=== PATIENT | female | born 1930 | race Two or more races ===

== ENCOUNTER 2018-01-18 13:20 | Inpatient (IN) | payer MEDICARE, OTHER ==
[~2018-01-18] VITALS: Ht 157.5 cm; Wt 64.9 kg
--- NOTE | 2018-01-18 13:32 | Emergency Room Report ---
History of Present Illness General Chief Complaint: Diarrhea Source: Patient (GABRIELADiandraLEIGHANN D.O.) Present Illness HPI Patient presents for 2 days of diarrhea. She denies abdominal pain. She denies nausea or vomiting. She denies fever or chills. She denies chest pain or shortness of breath. She denies fall or trauma. She denies dysuria or hematuria. She has no other complaints. (LEIGHANN YANES D.O.) Allergies: Coded Allergies: No Known Allergies (Unverified , 01/18/18) Patient History Past Medical History: see triage record, dementia Social History: Denies: smoking, alcohol use, drug use Reviewed Nursing Documentation: PMH: Agreed; PSxH: Agreed (LEIGHANN YANES D.O. ) Review of Systems All Other Systems: negative except mentioned in HPI (LEIGHANN YANES D.O.) Physical Exam Vital Signs Date Time Temp Pulse Resp B/P (MAP) Pulse Ox O2 Delivery O2 Flow Rate FiO2 01/18/18 13:14 98.2 80 18 100/60 98 Room Air 98.2 Sp02 EP Interpretation: reviewed, normal General Appearance: no apparent distress, alert, GCS 15, non-toxic Head: normocephalic, atraumatic Eyes: bilateral eye normal inspection, bilateral eye PERRL ENT: hearing grossly normal, normal pharynx, no angioedema, normal voice Neck: full range of motion, supple/symm/no masses Respiratory: chest non-tender, lungs clear, normal breath sounds, no respiratory distress, no retraction, no accessory muscle use, speaking full sentences Cardiovascular #1: regular rate, rhythm, no edema Gastrointestinal: normal bowel sounds, non tender, soft, non-distended, no guarding, no rebound Rectal: deferred Musculoskeletal: other - Unable to ROM L. hip. L. lower leg and L. foot cold with dark discoloration. unable to palpate DP pulse. Neurologic: alert, oriented x3, responsive, motor strength/tone normal, sensory intact, speech normal Psychiatric: judgement/insight normal, mood/affect normal, no suicidal/ homicidal ideation Skin: warm/dry, well hydrated, other - vaginal and perianal skin erythema/ irritation. (LEIGHANN YANES D.O.) Medical Decision Making Diagnostic Impression: Primary Impression: Colitis Additional Impression: PAD (peripheral artery disease) ER Course This patient presents with recurrent diarrhea. It is very watery and has a foul odor. I suspect she could have a C. difficile colitis. Most likely this patient also has a urinary tract infection. She is given antibiotics to treat both of these conditions. Given how frail and elderly this patient is, I feel she should be admitted for further treatment and monitoring as she could deteriorate rapidly. The patient's pelvis x-ray has a comminuted left hip fracture of uncertain acuity. Therefore, I obtained a CT of the left hip which is pending at the time of this dictation. This will be followed up by Dr. Flowers. She is also pending basic labs. See Dr. Flowers's addendum. She is admitted for further evaluation and treatment. (LEIGHANN YANES D.O.) ER Course Hospital Course 87-year-old female presents ED with several day history of diarrhea and weakness Clinical course Patient initially seen by Dr. Moses; please see her note for full history and physical Labs - marked leukocytosis noted, Hb/Hct stable. Na 126 Patient noted have limited range of motion of the left hip. No history of fall or trauma Xray L hip show severe shortening of the left femoral neck, acuity of fracture indeterminate CT A/P - severe pancolitis, also severe degenerative changes of bilateral hips but left worse than right Patient given IV hydration, given antibiotics Case discussed with Dr. Butler and he agreed to accept the patient to his service for further care and support I feel this is a highly complex case requiring extensive working including EKG/ Rhythm strip, Xray/CT/US, Blood/urine lab work, repeat exams while in ED, and administration of strong opiates/narcotics for pain control, admission to hospital or close patient follow up. Diagnosis - colitis, PAD Patient admitted to hospital in serious condition Labs Test 01/18/18 13:00 01/18/18 13:33 01/18/18 14:56 Sodium Level 126 MMOL/L (136-145) Potassium Level 4.2 MMOL/L (3.5-5.1) Chloride Level 94 MMOL/L (98-107) Carbon Dioxide Level 22 MMOL/L (21-32) Anion Gap 10 mmol/L (5-15) Blood Urea Nitrogen 21 mg/dL (7-18) Creatinine 1.0 MG/DL (0.55-1.30) Estimat Glomerular Filtration Rate mL/min (>60) Glucose Level 119 MG/DL (74-106) Calcium Level 8.5 MG/DL (8.5-10.1) Total Bilirubin 0.5 MG/DL (0.2-1.0) Aspartate Amino Transf (AST/SGOT) 14 U/L (15-37) Alanine Aminotransferase (ALT/SGPT) 17 U/L (12-78) Alkaline Phosphatase 128 U/L (46-116) Total Protein 6.6 G/DL (6.4-8.2) Albumin 2.0 G/DL (3.4-5.0) Globulin 4.6 g/dL Albumin/Globulin Ratio 0.4 (1.0-2.7) White Blood Count 26.8 K/UL (4.8-10.8) Red Blood Count 4.25 M/UL (4.20-5.40) Hemoglobin 13.3 G/DL (12.0-16.0) Hematocrit 39.4 % (37.0-47.0) Mean Corpuscular Volume 93 FL (80-99) Mean Corpuscular Hemoglobin 31.3 PG (27.0-31.0) Mean Corpuscular Hemoglobin Concent 33.7 G/DL (32.0-36.0) Red Cell Distribution Width 11.5 % (11.6-14.8) Platelet Count 336 K/UL (150-450) Mean Platelet Volume 7.4 FL (6.5-10.1) Neutrophils (%) (Auto) % (45.0-75.0) Lymphocytes (%) (Auto) % (20.0-45.0) Monocytes (%) (Auto) % (1.0-10.0) Eosinophils (%) (Auto) % (0.0-3.0) Basophils (%) (Auto) % (0.0-2.0) Urine Color Yellow Urine Appearance Cloudy Urine pH 5 (4.5-8.0) Urine Specific [place] 1.015 (1.005-1.035) Urine Protein 2+ (NEGATIVE) Urine Glucose (UA) Negative (NEGATIVE) Urine Ketones Negative (NEGATIVE) Urine Occult Blood 3+ (NEGATIVE) Urine Nitrite Negative (NEGATIVE) Urine Bilirubin 2+ (NEGATIVE) Urine Ictotest Negative Urine Urobilinogen 4 MG/DL (0.0-1.0) Urine Leukocyte Esterase 1+ (NEGATIVE) Urine RBC 5-10 /HPF (0 - 2) Urine WBC 5-10 /HPF (0 - 2) Urine Squamous Epithelial Cells Moderate /LPF (NONE/OCC) Urine Amorphous Sediment Many /LPF (NONE) Urine Bacteria Moderate /HPF (NONE) (German Flowers MD) EKG Diagnostic Results Rate: normal Rhythm: NSR ST Segments: no acute changes (LEIGHANN YANES D.O.) Rhythm Strip Diag. Results EP Interpretation: yes Rate: 80's Rhythm: NSR, no PVC's, no ectopy (LEIGHANN YANES D.O.) Other X-Ray Diagnostic Results Other X-Ray Diagnostic Results : X-Ray ordered: L hip # of Views/Limited Vs Complete: 3 View Indication: Pain EP Interpretation: Yes Interpretation: no dislocation, no soft tissue swelling, no fractures, other - Bones/joints: No acute fracture. No dislocation. Severe degeneration of the left hip with complete obliteration of the superior joint space and remodeling of the femoral head and acetabulum. Impression: Other - severe degeneration of L hip Electronically Signed by: Electronically signed by German Flowers MD (German Flowers MD) CT/MRI/US Diagnostic Results CT/MRI/US Diagnostic Results : Imaging Test Ordered: CT A/P Impression There is pancolitis as signified by extensive colonic wall thickening Severe degeneration of the hips, left more pronounced than right. No acute fracture. (German Flowers MD) Last Vital Signs Date Time Temp Pulse Resp B/P (MAP) Pulse Ox O2 Delivery O2 Flow Rate FiO2 01/18/18 13:14 98.2 80 18 100/60 98 Room Air 98.2 (LEIGHANN YANES D.O.) Status: improved (German Flowers MD) Disposition: ADMITTED INPATIENT Condition: Serious Scripts Unable to Obtain Active Prescriptions or Reported Meds LEIGHANN YANES D.O. January 18, 2018 13:32 German Flowers MD January 18, 2018 16:48
[2018-01-18 14:00] VITALS: BP 122/83
[2018-01-18 14:41] LABS: HEMATOCRIT 39.4 % (37.0-47.0); HEMOGLOBIN 13.3 G/DL (12.0-16.0); MEAN CORPUSCULAR VOLUME 93 FL (80-99); PLATELET COUNT 336 K/UL (150-450); RED BLOOD COUNT 4.25 M/UL (4.20-5.40); RED CELL DISTRIBUTION WIDTH 11.5 % (11.6-14.8)
[2018-01-18 14:48] LABS: ANION GAP 10 mmol/L (5-15); BLOOD UREA NITROGEN 21 mg/dL (7-18); CALCIUM 8.5 MG/DL (8.5-10.1); CARBON DIOXIDE 22 MMOL/L (21-32); CHLORIDE 94 MMOL/L (98-107); POTASSIUM 4.2 MMOL/L (3.5-5.1); SODIUM 126 MMOL/L (136-145)
[2018-01-18 14:49] LABS: WHITE BLOOD COUNT 26.8 K/UL (4.8-10.8)
[2018-01-18 14:53] LABS: ALANINE AMINOTRANSFERASE 17 U/L (12-78); ALBUMIN/GLOBULIN RATIO 0.4 (1.0-2.7); ALKALINE PHOSPHATASE 128 U/L (46-116); ASPARTATE AMINO TRANSFERASE 14 U/L (15-37); BILIRUBIN,TOTAL 0.5 MG/DL (0.2-1.0)
[2018-01-18 15:00] VITALS: BP 100/82
[2018-01-18] MEDS ORDERED: Vancomycin oral 125mg/2.5ml ORAL ONE (15:00)
[2018-01-18] MEDS ORDERED: cefTRIAXone 1 GM in NS 55 ML IVPB ONE (15:00)
--- NOTE | 2018-01-18 15:00 | Diagnostic Imaging Report ---
EXAM: XR Left Hip With Pelvis When Performed, 2 or 3 Views CLINICAL HISTORY: TRAUMA TECHNIQUE: Two or three views of the left hip, with pelvis when performed. COMPARISON: No relevant prior studies available. FINDINGS: Bones/joints: No acute fracture. No dislocation. Severe degeneration of the left hip with complete obliteration of the superior joint space and remodeling of the femoral head and acetabulum. Osteopenia. Soft tissues: Small soft tissue calcifications to the lateral upper thigh. IMPRESSION: No fracture or dislocation. Severe left hip degeneration..
[2018-01-18] MEDS ORDERED: Isovue-300 100ml vial INJ PRN (15:15)
[2018-01-18 15:45] LABS: APPEARANCE,URINE CLOUDY; BILIRUBIN, URINE 2+ (NEGATIVE); GLUCOSE, URINE (UA) NEGATIVE (NEGATIVE); KETONES,URINE NEGATIVE (NEGATIVE); LEUKOCYTE ESTERASE ,URINE 1+ (NEGATIVE); NITRITE,URINE NEGATIVE (NEGATIVE); PH,URINE 5 (4.5-8.0); PROTEIN,URINE 2+ (NEGATIVE); UROBILINOGEN,URINE 4 MG/DL (0.0-1.0)
[2018-01-18 15:52] LABS: COLOR,URINE YELLOW
--- NOTE | 2018-01-18 16:43 | Diagnostic Imaging Report ---
EXAM: CT Abdomen and Pelvis With Intravenous Contrast CLINICAL HISTORY: ABD PAIN TECHNIQUE: Axial computed tomography images of the abdomen and pelvis with intravenous contrast. CTDI is 12.1 mGy and DLP is 606 mGy-cm One or more of the following dose reduction techniques were used: automated exposure control, adjustment of the mA and/or kV according to patient size, use of iterative reconstruction technique. COMPARISON: No relevant prior studies available. FINDINGS: Small right pleural effusion associated with compressive atelectasis. Cardiomegaly with small pericardial effusion. The liver demonstrates no mass. The gallbladder is distended. No radiopaque stone. Dense renal collecting systems, likely from recent contrast administration. No obstruction. There is pancolitis as signified by extensive colonic wall thickening. No pneumatosis or portal venous gas to specifically suggest ischemic etiology. No free air. There is small volume ascites, but no clear loculated abscess. Appendix is not identified. Aortoiliac atherosclerosis without aneurysm. Body wall edema. Severe degeneration of the hips, left more pronounced than right. No acute fracture. IMPRESSION: Severe pancolitis. Small pleural and pericardial effusions. Incidental findings as detailed above.
[2018-01-18 18:00] VITALS: BP 110/69
[2018-01-18] MEDS: D5NS 1,000 ML IV SCH (18:33)
[2018-01-18] MEDS: Ciprofloxacin 500mg tab ORAL SCH (18:33)
[2018-01-18 20:00] VITALS: BP 117/73
[2018-01-18] MEDS ORDERED: Vancomycin oral 125mg/2.5ml ORAL SCH (21:00)
[2018-01-19] VITALS: BP 110/68
--- NOTE | 2018-01-19 | History and Physical Report ---
DATE OF ADMISSION: 01/18/2018 CHIEF COMPLAINT: Diarrhea and dawson colitis. HISTORY OF PRESENT ILLNESS: The patient is an 87-year-old female. She has a history of hip pain, peripheral artery disease. She was brought in with complaints of 6 days of diarrhea. The patient is a poor historian. She states that she has had watery diarrhea for the last 6 days. She has a recent antibiotic use. Denies any ill contacts or recent travel. On evaluation in the emergency room, the patient had a elevated white count and low-grade fever. CT scan of the abdomen showed pancolitis. She was also hyponatremic. The patient is now admitted for further evaluation and care. PAST MEDICAL HISTORY: As above. PAST SURGICAL HISTORY: None. CURRENT MEDICATIONS: The patient does not recall. ALLERGIES: None. FAMILY HISTORY: None. SOCIAL HISTORY: There is no known history of tobacco, ethanol, or drugs. REVIEW OF SYSTEMS: GENERAL: Positive malaise, weakness. Positive fevers and chills. HEENT: No headaches or visual changes. CARDIOPULMONARY: No chest pain shortness of breath. GASTROINTESTINAL: Positive diarrhea. Mild abdominal pain. No nausea or vomiting. No melena. No bright red blood per rectum. GENITOURINARY: No urgency or frequency. MUSCULOSKELETAL: No joint pain or swelling. NEUROLOGIC: No seizures. PHYSICAL EXAMINATION: VITAL SIGNS: Temperature 98.1 degrees, pulse is 100, respirations 20 and blood pressure 117/73. GENERAL: The patient is a well-developed thin female, in no apparent distress. She is awake, but somewhat weak. HEENT: Her pupils are equal, round, and reactive to light. Oropharynx clear. NECK: Supple. HEART: Regular rate and rhythm. LUNGS: Clear. ABDOMEN: Soft, slightly distended. There is no rebound or guarding. EXTREMITIES: No clubbing or cyanosis. LABORATORY AND DIAGNOSTIC DATA: Sodium 126, potassium 4.2, chloride 94, bicarbonate 22, BUN 21, and creatinine 1.0. Alkaline phosphatase 128. Urine showed 5 to 10 wbcs. ASSESSMENT: This is a pleasant female admitted with complaints of dehydration, hyponatremia and pancolitis of unclear etiology. Problems 1. Pancolitis. 2. Rule out C. difficile. 3. Dehydration. 4. Hyponatremia. 5. History of peripheral artery disease. 6. Toxic metabolic encephalopathy. PLAN: IV hydration. We will start empiric treatment with Cipro and Flagyl. Check a stool for C. difficile. Checks stool for bacterial cultures. Antiemetics as needed. GI and ID consultation will be obtained. Otto Butler M.D. DR: DOMO JOB#: [id number] CC:
[2018-01-19 04:00] VITALS: BP 110/62
[2018-01-19] MEDS: Ciprofloxacin 500mg tab ORAL SCH (05:56)
[2018-01-19] MEDS: D5NS 1,000 ML IV SCH ×2 (07:20→14:23)
[2018-01-19 07:59] LABS: HEMATOCRIT 32.8 % (37.0-47.0); HEMOGLOBIN 11.2 G/DL (12.0-16.0); MEAN CORPUSCULAR VOLUME 93 FL (80-99); PLATELET COUNT 304 K/UL (150-450); RED BLOOD COUNT 3.54 M/UL (4.20-5.40); RED CELL DISTRIBUTION WIDTH 11.7 % (11.6-14.8)
--- NOTE | 2018-01-19 08:10 | General Progress Note ---
Assessment/Plan Problem List: (1) PAD (peripheral artery disease) ICD Codes: I73.9 - Peripheral vascular disease, unspecified SNOMED: 835482475, 855769465 (2) Colitis ICD Codes: K52.9 - Noninfective gastroenteritis and colitis, unspecified SNOMED: 89461284 (3) Diarrhea ICD Codes: R19.7 - Diarrhea, unspecified SNOMED: 79788727 (4) Hip pain ICD Codes: M25.559 - Pain in unspecified hip SNOMED: 77295506 Status: stable Assessment/Plan po flagyl ivf questran monitor labs Subjective ROS Limited/Unobtainable: No Constitutional: Reports: malaise, weakness HEENT: Reports: no symptoms Cardiovascular: Reports: no symptoms Respiratory: Reports: no symptoms Gastrointestinal/Abdominal: Reports: diarrhea Genitourinary: Reports: no symptoms Neurologic/Psychiatric: Reports: pre-existing deficit Endocrine: Reports: no symptoms Hematologic/Lymphatic: Reports: no symptoms Allergies: Coded Allergies: No Known Allergies (Unverified , 01/18/18) All Systems: reviewed and negative except above Subjective +diarrhea. + cdiff. weak. Objective Last 24 Hour Vital Signs Date Time Temp Pulse Resp B/P (MAP) Pulse Ox O2 Delivery O2 Flow Rate FiO2 01/19/18 04:00 98.6 89 20 110/62 99 98.6 01/19/18 00:00 98.3 101 20 110/68 96 98.3 01/18/18 20:00 98.1 100 20 117/73 96 98.1 01/18/18 18:00 97.3 69 20 110/69 97 Room Air 97.3 01/18/18 17:11 98.9 86 17 118/51 100 Room Air 99.0 01/18/18 15:00 99.0 83 18 100/82 100 Room Air 99.0 01/18/18 14:00 99.6 92 24 122/83 100 Room Air 99.6 01/18/18 13:14 98.2 80 18 100/60 98 Room Air 98.2 Intake and Output 01/18/18 01/19/18 19:00 07:00 Intake Total 655 ml 1115 ml Output Total 300 ml Balance 355 ml 1115 ml Intake Oral 240 ml IV Total 655 ml 875 ml Output Urine Total 300 ml # Voids 1 4 # Bowel Movements 2 3 Laboratory Tests 01/18/18 13:00: Sodium Level 126L, Potassium Level 4.2, Chloride Level 94L, Carbon Dioxide Level 22, Anion Gap 10, Blood Urea Nitrogen 21H, Creatinine 1.0, Estimat Glomerular Filtration Rate , Glucose Level 119H, Calcium Level 8.5, Total Bilirubin 0.5, Aspartate Amino Transf (AST/SGOT) 14L, Alanine Aminotransferase ( ALT/SGPT) 17, Alkaline Phosphatase 128H, Total Protein 6.6, Albumin 2.0L, Globulin 4.6, Albumin/Globulin Ratio 0.4L 01/18/18 13:33: White Blood Count 26.8*H, Red Blood Count 4.25, Hemoglobin 13.3, Hematocrit 39.4 , Mean Corpuscular Volume 93, Mean Corpuscular Hemoglobin 31.3H, Mean Corpuscular Hemoglobin Concent 33.7, Red Cell Distribution Width 11.5L, Platelet Count 336, Mean Platelet Volume 7.4, Neutrophils (%) (Auto) , Lymphocytes (%) (Auto) , Monocytes (%) (Auto) , Eosinophils (%) (Auto) , Basophils (%) (Auto) , Differential Total Cells Counted 100, Neutrophils % ( Manual) 78H, Lymphocytes % (Manual) 6L, Monocytes % (Manual) 7, Eosinophils % ( Manual) 0, Basophils % (Manual) 1, Band Neutrophils 8, Platelet Estimate Adequate, Platelet Morphology Normal, Red Blood Cell Morphology Normal 01/18/18 14:56: Urine Color Yellow, Urine Appearance Cloudy, Urine pH 5, Urine Specific [place] 1.015, Urine Protein 2+H, Urine Glucose (UA) Negative, Urine Ketones Negative, Urine Occult Blood 3+H, Urine Nitrite Negative, Urine Bilirubin 2+H, Urine Ictotest Negative, Urine Urobilinogen 4H, Urine Leukocyte Esterase 1+H, Urine RBC 5-10H, Urine WBC 5-10H, Urine Squamous Epithelial Cells ModerateH, Urine Amorphous Sediment ManyH, Urine Bacteria ModerateH 01/19/18 06:50: Sodium Level [Pending], Potassium Level [Pending], Chloride Level [Pending], Carbon Dioxide Level [Pending], Blood Urea Nitrogen [Pending], Creatinine [ Pending], Estimat Glomerular Filtration Rate [Pending], Glucose Level [Pending] , Calcium Level [Pending], Total Bilirubin [Pending], Aspartate Amino Transf ( AST/SGOT) [Pending], Alanine Aminotransferase (ALT/SGPT) [Pending], Alkaline Phosphatase [Pending], Total Protein [Pending], Albumin [Pending], Globulin [ Pending], White Blood Count [Pending], Red Blood Count [Pending], Hemoglobin [ Pending], Hematocrit [Pending], Mean Corpuscular Volume [Pending], Mean Corpuscular Hemoglobin [Pending], Mean Corpuscular Hemoglobin Concent [Pending] , Red Cell Distribution Width [Pending], Platelet Count [Pending], Mean Platelet Volume [Pending], Neutrophils (%) (Auto) [Pending], Lymphocytes (%) ( Auto) [Pending], Monocytes (%) (Auto) [Pending], Eosinophils (%) (Auto) [Pending ], Basophils (%) (Auto) [Pending] Height (Feet): 5 Height (Inches): 2.00 Weight (Pounds): 109 General Appearance: WD/WN, alert Neck: supple Cardiovascular: normal rate Respiratory/Chest: chest wall non-tender, lungs clear Abdomen: normal bowel sounds, non tender, soft, no organomegaly Edema: no edema noted Arm (L), no edema noted Arm (R), no edema noted Leg (L), no edema noted Leg (R), no edema noted Pedal (L), no edema noted Pedal (R), no edema noted Generalized JASS ALLEN January 19, 2018 08:10
[2018-01-19 08:19] LABS: WHITE BLOOD COUNT 22.6 K/UL (4.8-10.8)
[2018-01-19 08:29] LABS: ALANINE AMINOTRANSFERASE 14 U/L (12-78); ALBUMIN 1.5 G/DL (3.4-5.0); ALBUMIN/GLOBULIN RATIO 0.4 (1.0-2.7); ALKALINE PHOSPHATASE 110 U/L (46-116); ANION GAP 12 mmol/L (5-15); ASPARTATE AMINO TRANSFERASE 14 U/L (15-37); BILIRUBIN,TOTAL 0.4 MG/DL (0.2-1.0); BLOOD UREA NITROGEN 21 mg/dL (7-18); CALCIUM 7.9 MG/DL (8.5-10.1); CARBON DIOXIDE 19 MMOL/L (21-32); CHLORIDE 97 MMOL/L (98-107); CREATININE 0.9 MG/DL (0.55-1.30); POTASSIUM 3.9 MMOL/L (3.5-5.1); SODIUM 128 MMOL/L (136-145)
[2018-01-19] MEDS: Cholestyramine 4gm Pkt ORAL SCH ×3 (09:22→17:23)
--- NOTE | 2018-01-19 09:57 | General Progress Note ---
Assessment/Plan Assessment/Plan GI CONSULT Assessment - Diarrhea - C Diff colitis - at risk for toxic megacolon Recommendations - add po vanco - change Flagyl to IV - continue Cipro - Agree with Questran - Add probiotics - change PPI to H2B Thank you Jorge Peralta MD Subjective Allergies: Coded Allergies: No Known Allergies (Unverified , 01/18/18) Objective Last 24 Hour Vital Signs Date Time Temp Pulse Resp B/P (MAP) Pulse Ox O2 Delivery O2 Flow Rate FiO2 01/19/18 04:00 98.6 89 20 110/62 99 98.6 01/19/18 00:00 98.3 101 20 110/68 96 98.3 01/18/18 20:00 98.1 100 20 117/73 96 98.1 01/18/18 18:00 97.3 69 20 110/69 97 Room Air 97.3 01/18/18 17:11 98.9 86 17 118/51 100 Room Air 99.0 01/18/18 15:00 99.0 83 18 100/82 100 Room Air 99.0 01/18/18 14:00 99.6 92 24 122/83 100 Room Air 99.6 01/18/18 13:14 98.2 80 18 100/60 98 Room Air 98.2 Intake and Output 01/18/18 01/19/18 19:00 07:00 Intake Total 655 ml 1115 ml Output Total 300 ml Balance 355 ml 1115 ml Intake Oral 240 ml IV Total 655 ml 875 ml Output Urine Total 300 ml # Voids 1 4 # Bowel Movements 2 3 Laboratory Tests 01/18/18 13:00: Sodium Level 126L, Potassium Level 4.2, Chloride Level 94L, Carbon Dioxide Level 22, Anion Gap 10, Blood Urea Nitrogen 21H, Creatinine 1.0, Estimat Glomerular Filtration Rate , Glucose Level 119H, Calcium Level 8.5, Total Bilirubin 0.5, Aspartate Amino Transf (AST/SGOT) 14L, Alanine Aminotransferase ( ALT/SGPT) 17, Alkaline Phosphatase 128H, Total Protein 6.6, Albumin 2.0L, Globulin 4.6, Albumin/Globulin Ratio 0.4L 01/18/18 13:33: White Blood Count 26.8*H, Red Blood Count 4.25, Hemoglobin 13.3, Hematocrit 39.4 , Mean Corpuscular Volume 93, Mean Corpuscular Hemoglobin 31.3H, Mean Corpuscular Hemoglobin Concent 33.7, Red Cell Distribution Width 11.5L, Platelet Count 336, Mean Platelet Volume 7.4, Neutrophils (%) (Auto) , Lymphocytes (%) (Auto) , Monocytes (%) (Auto) , Eosinophils (%) (Auto) , Basophils (%) (Auto) , Differential Total Cells Counted 100, Neutrophils % ( Manual) 78H, Lymphocytes % (Manual) 6L, Monocytes % (Manual) 7, Eosinophils % ( Manual) 0, Basophils % (Manual) 1, Band Neutrophils 8, Platelet Estimate Adequate, Platelet Morphology Normal, Red Blood Cell Morphology Normal 01/18/18 14:56: Urine Color Yellow, Urine Appearance Cloudy, Urine pH 5, Urine Specific [place] 1.015, Urine Protein 2+H, Urine Glucose (UA) Negative, Urine Ketones Negative, Urine Occult Blood 3+H, Urine Nitrite Negative, Urine Bilirubin 2+H, Urine Ictotest Negative, Urine Urobilinogen 4H, Urine Leukocyte Esterase 1+H, Urine RBC 5-10H, Urine WBC 5-10H, Urine Squamous Epithelial Cells ModerateH, Urine Amorphous Sediment ManyH, Urine Bacteria ModerateH 01/19/18 06:50: Sodium Level 128L, Potassium Level 3.9, Chloride Level 97L, Carbon Dioxide Level 19L, Anion Gap 12, Blood Urea Nitrogen 21H, Creatinine 0.9, Estimat Glomerular Filtration Rate , Glucose Level 96, Calcium Level 7.9L, Total Bilirubin 0.4, Aspartate Amino Transf (AST/SGOT) 14L, Alanine Aminotransferase ( ALT/SGPT) 14, Alkaline Phosphatase 110, Total Protein 5.4L, Albumin 1.5L, Globulin 3.9, Albumin/Globulin Ratio 0.4L, White Blood Count 22.6*H, Red Blood Count 3.54L, Hemoglobin 11.2L, Hematocrit 32.8L, Mean Corpuscular Volume 93, Mean Corpuscular Hemoglobin 31.8H, Mean Corpuscular Hemoglobin Concent 34.3, Red Cell Distribution Width 11.7, Platelet Count 304, Mean Platelet Volume 7.2, Neutrophils (%) (Auto) , Lymphocytes (%) (Auto) , Monocytes (%) (Auto) , Eosinophils (%) (Auto) , Basophils (%) (Auto) , Differential Total Cells Counted 100, Neutrophils % (Manual) 84H, Lymphocytes % (Manual) 6L, Monocytes % (Manual) 1, Eosinophils % (Manual) 0, Basophils % (Manual) 0, Band Neutrophils 9H, Platelet Estimate Adequate, Platelet Morphology Normal, Hypochromasia 1+ Height (Feet): 5 Height (Inches): 2.00 Weight (Pounds): 109 Jorge Peralta MD January 19, 2018 09:57
[2018-01-19] MEDS: Vancomycin oral 125mg/2.5ml ORAL SCH ×3 (10:37→20:36)
[2018-01-19] MEDS ORDERED: D5 1/2NS 1000ml IV ONE (11:04)
[2018-01-19 12:00] VITALS: BP 95/49
[2018-01-19] MEDS ORDERED: metroNIDAZOLE 500mg tab ORAL SCH (12:00)
[2018-01-19] MEDS: Lactobacillus-GG tablet ORAL SCH ×2 (13:47→17:23)
[2018-01-19 15:57] VITALS: BP 99/55
[2018-01-19 20:00] VITALS: BP 105/68
--- NOTE | 2018-01-19 20:30 | Consultation ---
DATE OF CONSULTATION: 01/19/2018 INFECTIOUS DISEASES CONSULTATION CONSULTING PHYSICIAN: Ralph Randolph M.D. REFERRING PHYSICIAN: Otto Butler M.D. REASON FOR CONSULTATION: C. difficile colitis. HISTORY OF PRESENTING ILLNESS: This is an 87-year-old lady with history of peripheral arterial disease, who was brought into the hospital because of diarrhea. She was seen in the [facility] room where she was found to have leukocytosis. CT of abdomen showed pancolitis and an Infectious Diseases consultation has been obtained for antibiotics. PAST MEDICAL HISTORY: 1. History of peripheral arterial disease. 2. History of dementia. MEDICATIONS: As an inpatient, she is on famotidine, Lactobacillus, IV Flagyl, p.o. vancomycin, Questran, ciprofloxacin, Zofran, Tylenol, iopamidol. ALLERGIES: No known drug allergies. SOCIAL HISTORY: She does not smoke, drink, or use drugs. FAMILY HISTORY: Unknown. REVIEW OF SYSTEMS: Unable to obtain currently. PHYSICAL EXAMINATION: VITAL SIGNS: Temperature of 98.6, T-max of 99.6, pulse of 89, respiratory rate 20, blood pressure 110/62, O2 saturation of 99%. HEENT: Pupils equally reactive to light and accommodation. Mouth appears clean without thrush. NECK: Supple. No adenopathy. No JVD. CARDIOVASCULAR: Regular rate and rhythm. No murmurs. LUNGS: Clear to auscultation bilaterally. No crackles. No wheezes. ABDOMEN: Soft and distended. No organomegaly. EXTREMITIES: No cyanosis. No clubbing. No edema. LABORATORY DATA: White count of 22.6, hemoglobin 11.2, hematocrit 32.8, MCV 93, platelet count of 304,000; neutrophils of 84%. White count of 26 on 01/18/2018. Sodium 128, potassium 3.9, chloride 97, bicarbonate 19, BUN 21, creatinine 0.9, glucose 96, calcium 7.9. Total bilirubin 0.4. AST 14, ALT 14, alkaline phosphatase 110. Total protein 5.4. Albumin 1.5. UA showing 5 to 10 white cells. Urine cultures are negative. Stool for C. difficile is positive. CT of abdomen and pelvis showing severe pancolitis, small pleural and pericardial effusion. ASSESSMENT: This is an 87-year-old lady with history of dementia and peripheral arterial disease, who comes in with leukocytosis and diarrhea and was found to have: 1. Clostridium difficile colitis. 2. Hyponatremia. PLAN: 1. Continue IV Flagyl and p.o. vancomycin. 2. Can discontinue ciprofloxacin at this point. 3. We will follow up cultures. I would like to thank, Dr. Butler, for this consultation. Ralph Randolph M.D. DR: Marc JOB#: [id number] CC: Otto Butler M.D.
--- NOTE | 2018-01-19 21:15 | Consultation ---
DATE OF CONSULTATION: 01/19/2018 GASTROENTEROLOGY CONSULTATION CONSULTING PHYSICIAN: Jorge Peralta M.D. CHIEF COMPLAINT: I was asked to see this patient by Dr. Otto Butler for evaluation of diarrhea and colitis. HISTORY OF PRESENT ILLNESS: The patient is an 87-year-old white woman, who is a poor historian, who comes into the hospital due to six days of diarrhea. The patient has had a recent antibiotic and in fact overnight stool testing showed Clostridium difficile positive. She complains of abdominal pain and distention. CT scan shows severe pancolitis. The patient was also hyponatremic on admission and is being fluid resuscitated. She has been placed on antibiotics. PAST MEDICAL HISTORY: Remarkable for history of hip pain, peripheral artery disease. MEDICATIONS: See the chart list for details. ALLERGIES: None. SOCIAL HISTORY: The patient does not smoke or drink. FAMILY HISTORY: Noncontributory. REVIEW OF SYSTEMS: Otherwise negative. PHYSICAL EXAMINATION: GENERAL: This is a pleasant, thin white woman seen in her room. HEENT: Normocephalic and atraumatic. Sclerae anicteric. Oropharynx is clear. Dentition was fair. NECK: Supple. CHEST: Clear to auscultation. CARDIOVASCULAR: Regular rate. ABDOMEN: Soft, but distended. There is diffuse tenderness to palpation with no rebound, but mild voluntary guarding. There were no masses. EXTREMITIES: Revealed no edema. LABORATORY AND DIAGNOSTIC DATA: Laboratory data was noted. CT scan was noted. ASSESSMENT: This patient presents with Clostridium difficile colitis and has severe colitis on CT and distended abdomen. This is consistent with Clostridium difficile colitis and she is at risk for toxic megacolon. As such, I would treat Clostridium difficile with two antibiotics in the beginning until her colon has improved. I would give her oral vancomycin and intravenous Flagyl. Ciprofloxacin should be continued given the possible toxic megacolon transformation. Questran can be given to bind the toxin. H2 blockers will be preferred over proton-pump inhibitor to avoid promotion of the Clostridium difficile. Probiotics will also be given. Her exam should be followed closely. RECOMMENDATIONS: Per above discussion and per orders written in the chart. Thank you for asking me to participate in the care of this patient. Jorge Peralta M.D. DR: Sheyla JOB#: [id number] CC: PAULINA
[2018-01-20] VITALS: BP 109/63
[2018-01-20 04:00] VITALS: BP 109/62
[2018-01-20] MEDS: D5NS 1,000 ML IV SCH ×2 (04:31→17:43)
--- NOTE | 2018-01-20 07:40 | General Progress Note ---
Assessment/Plan Problem List: (1) PAD (peripheral artery disease) ICD Codes: I73.9 - Peripheral vascular disease, unspecified SNOMED: 746352549, 125291837 (2) Colitis ICD Codes: K52.9 - Noninfective gastroenteritis and colitis, unspecified SNOMED: 50485913 (3) Diarrhea ICD Codes: R19.7 - Diarrhea, unspecified SNOMED: 05306185 (4) Hip pain ICD Codes: M25.559 - Pain in unspecified hip SNOMED: 34111264 Status: stable, progressing Assessment/Plan po flagyl ivf questran monitor labs ivf zofran for nausea pt/ot Subjective ROS Limited/Unobtainable: No Constitutional: Reports: malaise, weakness HEENT: Reports: no symptoms Cardiovascular: Reports: no symptoms Respiratory: Reports: no symptoms Gastrointestinal/Abdominal: Reports: no symptoms Genitourinary: Reports: no symptoms Neurologic/Psychiatric: Reports: pre-existing deficit Endocrine: Reports: no symptoms Hematologic/Lymphatic: Reports: no symptoms Allergies: Coded Allergies: No Known Allergies (Unverified , 01/18/18) All Systems: reviewed and negative except above Subjective +diarrhea- but less. + cdiff. weak. labs still pending. on ivf. vomited x 1 last night Objective Last 24 Hour Vital Signs Date Time Temp Pulse Resp B/P (MAP) Pulse Ox O2 Delivery O2 Flow Rate FiO2 01/20/18 04:00 97.1 80 20 109/62 97 97.1 01/20/18 00:00 97.4 76 20 109/63 100 97.4 01/19/18 20:00 98.1 96 20 105/68 96 98.1 01/19/18 15:57 97.8 90 20 99/55 98 Room Air 97.8 01/19/18 12:00 97.6 82 20 95/49 97 Room Air 97.6 Intake and Output 01/19/18 01/20/18 19:00 07:00 Intake Total 895 ml 1065 ml Balance 895 ml 1065 ml Intake Oral 120 ml 240 ml IV Total 775 ml 825 ml # Voids 2 # Bowel Movements 8 1 Height (Feet): 5 Height (Inches): 2.00 Weight (Pounds): 109 General Appearance: WD/WN, alert Neck: supple Cardiovascular: regular rhythm Respiratory/Chest: chest wall non-tender, lungs clear, normal breath sounds Abdomen: normal bowel sounds, non tender, soft, no organomegaly Edema: no edema noted Arm (L), no edema noted Arm (R), no edema noted Leg (L), no edema noted Leg (R), no edema noted Pedal (L), no edema noted Pedal (R), no edema noted Generalized JASS ALLEN January 20, 2018 07:40
[2018-01-20 08:00] VITALS: BP 125/55
[2018-01-20] MEDS: Vancomycin oral 125mg/2.5ml ORAL SCH ×4 (08:59→21:55)
[2018-01-20] MEDS: Cholestyramine 4gm Pkt ORAL SCH ×3 (08:59→17:42)
[2018-01-20] MEDS: Lactobacillus-GG tablet ORAL SCH ×3 (08:59→17:42)
[2018-01-20 11:18] LABS: HEMATOCRIT 33.4 % (37.0-47.0); HEMOGLOBIN 10.9 G/DL (12.0-16.0); MEAN CORPUSCULAR VOLUME 95 FL (80-99); PLATELET COUNT 310 K/UL (150-450); RED BLOOD COUNT 3.53 M/UL (4.20-5.40); WHITE BLOOD COUNT 19.3 K/UL (4.8-10.8)
[2018-01-20 11:20] LABS: ALANINE AMINOTRANSFERASE 16 U/L (12-78); ALBUMIN 1.4 G/DL (3.4-5.0); ALBUMIN/GLOBULIN RATIO 0.4 (1.0-2.7); ALKALINE PHOSPHATASE 107 U/L (46-116); ANION GAP 11 mmol/L (5-15); ASPARTATE AMINO TRANSFERASE 15 U/L (15-37); BILIRUBIN,TOTAL 0.3 MG/DL (0.2-1.0); BLOOD UREA NITROGEN 17 mg/dL (7-18); CALCIUM 7.8 MG/DL (8.5-10.1); CARBON DIOXIDE 18 MMOL/L (21-32); CHLORIDE 100 MMOL/L (98-107); POTASSIUM 3.9 MMOL/L (3.5-5.1); SODIUM 129 MMOL/L (136-145)
[2018-01-20 12:00] VITALS: BP 128/81
--- NOTE | 2018-01-20 15:00 | Infectious Diseases Prog Note ---
Assessment/Plan Assessment/Plan A; Severe C. difficile colitis Hyponatremia Dementia PVD Continue Iv Flagyl & PO Vancomycin Subjective ROS Limited/Unobtainable: Yes Gastrointestinal/Abdominal: Reports: diarrhea Allergies: Coded Allergies: No Known Allergies (Unverified , 01/18/18) Objective Vital Signs Last 24 Hour Vital Signs Date Time Temp Pulse Resp B/P (MAP) Pulse Ox O2 Delivery O2 Flow Rate FiO2 01/20/18 12:00 97.5 69 20 128/81 98 97.5 01/20/18 08:00 97.7 74 20 125/55 96 97.7 01/20/18 04:00 97.1 80 20 109/62 97 97.1 01/20/18 00:00 97.4 76 20 109/63 100 97.4 01/19/18 20:00 98.1 96 20 105/68 96 98.1 01/19/18 15:57 97.8 90 20 99/55 98 Room Air 97.8 Height (Feet): 5 Height (Inches): 2.00 Weight (Pounds): 109 General Appearance: no acute distress HEENT: mucous membranes moist Respiratory/Chest: lungs clear Cardiovascular: normal rate Abdomen: soft, non tender Extremities: no edema Neurologic/Psychiatric: other - sleeping Microbiology Date/Time Source Procedure Growth Status 01/18/18 17:30 Stool Clostridium difficile Toxin Assay - Final Complete 01/18/18 14:56 Urine,Clean Catch Urine Culture - Preliminary NO GROWTH AFTER 24 HOURS Resulted 01/18/18 17:30 Anus Stool Culture - Preliminary NORMAL FECAL VILLA. Resulted Laboratory Tests Test 01/20/18 09:11 White Blood Count 19.3 K/UL (4.8-10.8) H Red Blood Count 3.53 M/UL (4.20-5.40) L Hemoglobin 10.9 G/DL (12.0-16.0) L Hematocrit 33.4 % (37.0-47.0) L Mean Corpuscular Volume 95 FL (80-99) Mean Corpuscular Hemoglobin 30.8 PG (27.0-31.0) Mean Corpuscular Hemoglobin Concent 32.5 G/DL (32.0-36.0) Red Cell Distribution Width 12.0 % (11.6-14.8) Platelet Count 310 K/UL (150-450) Mean Platelet Volume 8.2 FL (6.5-10.1) Neutrophils (%) (Auto) % (45.0-75.0) Lymphocytes (%) (Auto) % (20.0-45.0) Monocytes (%) (Auto) % (1.0-10.0) Eosinophils (%) (Auto) % (0.0-3.0) Basophils (%) (Auto) % (0.0-2.0) Differential Total Cells Counted 100 Neutrophils % (Manual) 85 % (45-75) H Lymphocytes % (Manual) 6 % (20-45) L Monocytes % (Manual) 3 % (1-10) Eosinophils % (Manual) 1 % (0-3) Basophils % (Manual) 0 % (0-2) Band Neutrophils 5 % (0-8) Platelet Estimate Adequate Platelet Morphology Normal Hypochromasia 1+ Anisocytosis 1+ Sodium Level 129 MMOL/L (136-145) L Potassium Level 3.9 MMOL/L (3.5-5.1) Chloride Level 100 MMOL/L (98-107) Carbon Dioxide Level 18 MMOL/L (21-32) L Anion Gap 11 mmol/L (5-15) Blood Urea Nitrogen 17 mg/dL (7-18) Creatinine 1.0 MG/DL (0.55-1.30) Estimat Glomerular Filtration Rate mL/min (>60) Glucose Level 229 MG/DL (74-106) #H Calcium Level 7.8 MG/DL (8.5-10.1) L Total Bilirubin 0.3 MG/DL (0.2-1.0) Aspartate Amino Transf (AST/SGOT) 15 U/L (15-37) Alanine Aminotransferase (ALT/SGPT) 16 U/L (12-78) Alkaline Phosphatase 107 U/L (46-116) Total Protein 4.7 G/DL (6.4-8.2) L Albumin 1.4 G/DL (3.4-5.0) L Globulin 3.3 g/dL Albumin/Globulin Ratio 0.4 (1.0-2.7) L Thyroid Stimulating Hormone (TSH) 6.927 uiU/mL (0.358-3.740) Current Medications Medications (Trade) Dose Ordered Sig/Stephanie Route PRN Reason Start Time Stop Time Status Last Admin Dose Admin Acetaminophen (Tylenol) 650 mg Q4H PRN ORAL Mild Pain/Temp > 100.5 01/18/18 18:00 02/17/18 17:59 01/20/18 04:31 Cholestyramine Resin (Questran) 4 gm THREE TIMES A DAY ORAL 01/19/18 09:00 02/18/18 08:59 01/20/18 13:00 Dextrose/Sodium Chloride 1,000 ml @ 50 mls/hr Q20H IV 01/20/18 18:00 02/19/18 17:59 Famotidine (Pepcid) 20 mg DAILY ORAL 01/20/18 09:00 02/19/18 08:59 01/20/18 08:59 Iopamidol (Isovue-300 100ml) 100 ml NOW PRN INJ Radiology Procedure 01/18/18 15:15 Lactobacillus Acidophilus (Culturelle) 1 tab THREE TIMES A DAY ORAL 01/19/18 13:00 02/18/18 12:59 01/20/18 13:00 Metronidazole 100 ml @ 100 mls/hr Q8H IVPB 01/19/18 12:00 01/26/18 11:59 01/20/18 12:09 Ondansetron HCl (Zofran) 4 mg Q6H PRN IVP Nausea & Vomiting 01/18/18 18:00 02/17/18 17:59 01/20/18 04:31 Vancomycin HCl (Vancomycin) 125 mg FOUR TIMES A DAY ORAL 01/19/18 10:30 01/26/18 10:29 01/20/18 13:00 KRISTIE ALVARENGA January 20, 2018 15:00
[2018-01-20 16:00] VITALS: BP 108/59
[2018-01-20] MEDS ORDERED: D5NS 1000ml IV ONE (17:07)
[2018-01-20 20:00] VITALS: BP 120/61
--- NOTE | 2018-01-20 21:20 | General Progress Note ---
Assessment/Plan Assessment/Plan Assessment - Diarrhea - C Diff colitis - at risk for toxic megacolon Recommendations - po vanco - Flagyl IV - Questran - probiotics - H2B - po diet Subjective Allergies: Coded Allergies: No Known Allergies (Unverified , 01/18/18) Subjective more awake today no complaints Objective Last 24 Hour Vital Signs Date Time Temp Pulse Resp B/P (MAP) Pulse Ox O2 Delivery O2 Flow Rate FiO2 01/20/18 20:00 98.2 87 20 120/61 96 98.2 01/20/18 16:00 97.3 75 20 108/59 98 97.3 01/20/18 12:00 97.5 69 20 128/81 98 97.5 01/20/18 08:00 97.7 74 20 125/55 96 97.7 01/20/18 04:00 97.1 80 20 109/62 97 97.1 01/20/18 00:00 97.4 76 20 109/63 100 97.4 Intake and Output 01/19/18 01/20/18 19:00 07:00 Intake Total 895 ml 1065 ml Balance 895 ml 1065 ml Intake Oral 120 ml 240 ml IV Total 775 ml 825 ml # Voids 2 # Bowel Movements 8 1 Laboratory Tests 01/20/18 09:11: White Blood Count 19.3H, Red Blood Count 3.53L, Hemoglobin 10.9L, Hematocrit 33.4L, Mean Corpuscular Volume 95, Mean Corpuscular Hemoglobin 30.8, Mean Corpuscular Hemoglobin Concent 32.5, Red Cell Distribution Width 12.0, Platelet Count 310, Mean Platelet Volume 8.2, Neutrophils (%) (Auto) , Lymphocytes (%) ( Auto) , Monocytes (%) (Auto) , Eosinophils (%) (Auto) , Basophils (%) (Auto) , Differential Total Cells Counted 100, Neutrophils % (Manual) 85H, Lymphocytes % (Manual) 6L, Monocytes % (Manual) 3, Eosinophils % (Manual) 1, Basophils % ( Manual) 0, Band Neutrophils 5, Platelet Estimate Adequate, Platelet Morphology Normal, Hypochromasia 1+, Anisocytosis 1+, Sodium Level 129L, Potassium Level 3.9, Chloride Level 100, Carbon Dioxide Level 18L, Anion Gap 11, Blood Urea Nitrogen 17, Creatinine 1.0, Estimat Glomerular Filtration Rate , Glucose Level 229#H, Calcium Level 7.8L, Total Bilirubin 0.3, Aspartate Amino Transf (AST/SGOT ) 15, Alanine Aminotransferase (ALT/SGPT) 16, Alkaline Phosphatase 107, Total Protein 4.7L, Albumin 1.4L, Globulin 3.3, Albumin/Globulin Ratio 0.4L, Thyroid Stimulating Hormone (TSH) 6.927H Height (Feet): 5 Height (Inches): 2.00 Weight (Pounds): 109 Objective Thin pale woman NCAT supple CTA RRR Soft NT, less distended no edema Jorge Peralta MD January 20, 2018 21:20
[2018-01-21] VITALS: BP 134/68
[2018-01-21 04:00] VITALS: BP_SYST 116; BP_SYST 120; BP_DIAS 63; BP_DIAS 64
[2018-01-21 08:00] VITALS: BP 127/85
--- NOTE | 2018-01-21 08:27 | General Progress Note ---
Assessment/Plan Problem List: (1) PAD (peripheral artery disease) ICD Codes: I73.9 - Peripheral vascular disease, unspecified SNOMED: 359292975, 332931393 (2) Colitis ICD Codes: K52.9 - Noninfective gastroenteritis and colitis, unspecified SNOMED: 88638490 (3) Diarrhea ICD Codes: R19.7 - Diarrhea, unspecified SNOMED: 49698906 (4) Hip pain ICD Codes: M25.559 - Pain in unspecified hip SNOMED: 79565090 Status: stable, progressing Assessment/Plan po flagyl ivf questran monitor labs ivf zofran for nausea pt/ot pysch eval called snf placement requested by son Subjective ROS Limited/Unobtainable: No Constitutional: Reports: malaise, weakness HEENT: Reports: no symptoms Cardiovascular: Reports: no symptoms Respiratory: Reports: no symptoms Gastrointestinal/Abdominal: Reports: diarrhea Genitourinary: Reports: no symptoms Neurologic/Psychiatric: Reports: anxiety, depressed, emotional problems Endocrine: Reports: no symptoms Hematologic/Lymphatic: Reports: no symptoms Allergies: Coded Allergies: No Known Allergies (Unverified , 01/18/18) All Systems: reviewed and negative except above Subjective +diarrhea- 4 movement last night. still watery. pt is more alert. long d.w son. he does not feel like he can take the pt home. Objective Last 24 Hour Vital Signs Date Time Temp Pulse Resp B/P (MAP) Pulse Ox O2 Delivery O2 Flow Rate FiO2 01/21/18 08:00 97.8 92 20 127/85 98 97.8 01/21/18 04:00 97.3 97 20 120/63 98 97.3 01/21/18 00:00 98.0 86 20 134/68 95 98.0 01/20/18 20:00 98.2 87 20 120/61 96 98.2 01/20/18 16:00 97.3 75 20 108/59 98 97.3 01/20/18 12:00 97.5 69 20 128/81 98 97.5 Intake and Output 01/20/18 01/21/18 19:00 07:00 Intake Total 825 ml 720 ml Balance 825 ml 720 ml Intake Oral 20 ml IV Total 825 ml 700 ml # Voids 4 2 # Bowel Movements 4 2 Laboratory Tests 01/20/18 09:11: White Blood Count 19.3H, Red Blood Count 3.53L, Hemoglobin 10.9L, Hematocrit 33.4L, Mean Corpuscular Volume 95, Mean Corpuscular Hemoglobin 30.8, Mean Corpuscular Hemoglobin Concent 32.5, Red Cell Distribution Width 12.0, Platelet Count 310, Mean Platelet Volume 8.2, Neutrophils (%) (Auto) , Lymphocytes (%) ( Auto) , Monocytes (%) (Auto) , Eosinophils (%) (Auto) , Basophils (%) (Auto) , Differential Total Cells Counted 100, Neutrophils % (Manual) 85H, Lymphocytes % (Manual) 6L, Monocytes % (Manual) 3, Eosinophils % (Manual) 1, Basophils % ( Manual) 0, Band Neutrophils 5, Platelet Estimate Adequate, Platelet Morphology Normal, Hypochromasia 1+, Anisocytosis 1+, Sodium Level 129L, Potassium Level 3.9, Chloride Level 100, Carbon Dioxide Level 18L, Anion Gap 11, Blood Urea Nitrogen 17, Creatinine 1.0, Estimat Glomerular Filtration Rate , Glucose Level 229#H, Calcium Level 7.8L, Total Bilirubin 0.3, Aspartate Amino Transf (AST/SGOT ) 15, Alanine Aminotransferase (ALT/SGPT) 16, Alkaline Phosphatase 107, Total Protein 4.7L, Albumin 1.4L, Globulin 3.3, Albumin/Globulin Ratio 0.4L, Thyroid Stimulating Hormone (TSH) 6.927H Height (Feet): 5 Height (Inches): 2.00 Weight (Pounds): 109 Objective General Appearance: WD/WN, alert Neck: supple Cardiovascular: regular rhythm Respiratory/Chest: chest wall non-tender, lungs clear, normal breath sounds Abdomen: normal bowel sounds, non tender, soft, no organomegaly Edema: no edema noted Arm (L), no edema noted Arm (R), no edema noted Leg (L), no edema noted Leg (R), no edema noted Pedal (L), no edema noted Pedal (R), no edema noted Generalized JASS ALLEN January 21, 2018 08:27
[2018-01-21] MEDS: Vancomycin oral 125mg/2.5ml ORAL SCH ×4 (10:02→20:24)
[2018-01-21] MEDS: Cholestyramine 4gm Pkt ORAL SCH ×3 (10:02→17:54)
[2018-01-21] MEDS: Lactobacillus-GG tablet ORAL SCH ×3 (10:02→17:54)
--- NOTE | 2018-01-21 10:56 | Infectious Diseases Prog Note ---
Assessment/Plan Assessment/Plan antibiotics : vancomycin po, iv flagyl A 1. c.diff colitis 2. leucocytosis improving 3. hyponatremia 4. dementia P 1. continue vancomycin po, iv flagyl 2. will follow up cultures Subjective ROS Limited/Unobtainable: Yes Allergies: Coded Allergies: No Known Allergies (Unverified , 01/18/18) Objective Vital Signs Last 24 Hour Vital Signs Date Time Temp Pulse Resp B/P (MAP) Pulse Ox O2 Delivery O2 Flow Rate FiO2 01/21/18 08:00 97.8 92 20 127/85 98 97.8 01/21/18 04:00 97.3 97 20 120/63 98 97.3 01/21/18 00:00 98.0 86 20 134/68 95 98.0 01/20/18 20:00 98.2 87 20 120/61 96 98.2 01/20/18 16:00 97.3 75 20 108/59 98 97.3 01/20/18 12:00 97.5 69 20 128/81 98 97.5 Height (Feet): 5 Height (Inches): 2.00 Weight (Pounds): 109 Respiratory/Chest: lungs clear Cardiovascular: normal rate, regular rhythm, no gallop/murmur Abdomen: distended Extremities: no edema Microbiology Date/Time Source Procedure Growth Status 01/18/18 17:30 Stool Clostridium difficile Toxin Assay - Final Complete 01/18/18 14:56 Urine,Clean Catch Urine Culture - Final NO GROWTH AFTER 48 HOURS Complete 01/18/18 17:30 Anus Stool Culture - Preliminary NORMAL FECAL [facility]ILLA. Resulted Current Medications Medications (Trade) Dose Ordered Sig/Stephanie Route PRN Reason Start Time Stop Time Status Last Admin Dose Admin Acetaminophen (Tylenol) 650 mg Q4H PRN ORAL Mild Pain/Temp > 100.5 01/18/18 18:00 02/17/18 17:59 01/20/18 04:31 Cholestyramine Resin (Questran) 4 gm THREE TIMES A DAY ORAL 01/19/18 09:00 02/18/18 08:59 01/21/18 10:02 Dextrose/Sodium Chloride 1,000 ml @ 50 mls/hr Q20H IV 01/20/18 18:00 02/19/18 17:59 01/20/18 17:43 Famotidine (Pepcid) 20 mg DAILY ORAL 01/20/18 09:00 02/19/18 08:59 01/21/18 10:02 Iopamidol (Isovue-300 100ml) 100 ml NOW PRN INJ Radiology Procedure 01/18/18 15:15 Lactobacillus Acidophilus (Culturelle) 1 tab THREE TIMES A DAY ORAL 01/19/18 13:00 02/18/18 12:59 01/21/18 10:02 Levothyroxine Sodium (Synthroid) 50 mcg DAILY@0630 ORAL 01/22/18 06:30 02/21/18 06:29 Metronidazole 100 ml @ 100 mls/hr Q8H IVPB 01/19/18 12:00 01/26/18 11:59 01/21/18 03:46 Olanzapine (ZyPREXA) 5 mg BEDTIME ORAL 01/20/18 21:00 02/19/18 20:59 01/20/18 21:54 Ondansetron HCl (Zofran) 4 mg Q6H PRN IVP Nausea & Vomiting 01/18/18 18:00 02/17/18 17:59 01/20/18 04:31 Vancomycin HCl (Vancomycin) 125 mg FOUR TIMES A DAY ORAL 01/19/18 10:30 01/26/18 10:29 01/21/18 10:02 TIARRA AREVALO January 21, 2018 10:56
[2018-01-21 11:44] LABS: HEMATOCRIT 35.9 % (37.0-47.0); HEMOGLOBIN 11.6 G/DL (12.0-16.0); MEAN CORPUSCULAR VOLUME 96 FL (80-99); PLATELET COUNT 307 K/UL (150-450); RED BLOOD COUNT 3.74 M/UL (4.20-5.40); RED CELL DISTRIBUTION WIDTH 12.4 % (11.6-14.8); WHITE BLOOD COUNT 15.6 K/UL (4.8-10.8)
[2018-01-21 12:00] VITALS: BP 130/66
[2018-01-21 12:26] LABS: ALANINE AMINOTRANSFERASE 15 U/L (12-78); ALBUMIN 1.3 G/DL (3.4-5.0); ALBUMIN/GLOBULIN RATIO 0.3 (1.0-2.7); ALKALINE PHOSPHATASE 175 U/L (46-116); ANION GAP 10 mmol/L (5-15); ASPARTATE AMINO TRANSFERASE 17 U/L (15-37); BILIRUBIN,TOTAL 0.3 MG/DL (0.2-1.0); BLOOD UREA NITROGEN 10 mg/dL (7-18); CALCIUM 7.7 MG/DL (8.5-10.1); CARBON DIOXIDE 19 MMOL/L (21-32); CHLORIDE 103 MMOL/L (98-107); CREATININE 0.7 MG/DL (0.55-1.30); POTASSIUM 3.6 MMOL/L (3.5-5.1); SODIUM 131 MMOL/L (136-145)
--- NOTE | 2018-01-21 14:00 | General Progress Note ---
Assessment/Plan Status: not improved, unchanged Assessment/Plan encephalopathy psychosis -zyprexa 5mg qhs -provided ro Subjective Date patient seen: January 21, 2018 Neurologic/Psychiatric: Reports: anxiety, depressed, emotional problems Allergies: Coded Allergies: No Known Allergies (Unverified , 01/18/18) Objective Last 24 Hour Vital Signs Date Time Temp Pulse Resp B/P (MAP) Pulse Ox O2 Delivery O2 Flow Rate FiO2 01/21/18 12:00 98.1 85 24 130/66 96 98.1 01/21/18 08:00 97.8 92 20 127/85 98 97.8 01/21/18 04:00 97.3 97 20 120/63 98 97.3 01/21/18 00:00 98.0 86 20 134/68 95 98.0 01/20/18 20:00 98.2 87 20 120/61 96 98.2 01/20/18 16:00 97.3 75 20 108/59 98 97.3 Intake and Output 01/20/18 01/21/18 19:00 07:00 Intake Total 825 ml 720 ml Balance 825 ml 720 ml Intake Oral 20 ml IV Total 825 ml 700 ml # Voids 4 2 # Bowel Movements 4 2 Laboratory Tests 01/21/18 11:30: White Blood Count 15.6H, Red Blood Count 3.74L, Hemoglobin 11.6L, Hematocrit 35.9L, Mean Corpuscular Volume 96, Mean Corpuscular Hemoglobin 30.9, Mean Corpuscular Hemoglobin Concent 32.2, Red Cell Distribution Width 12.4, Platelet Count 307, Mean Platelet Volume 7.0, Neutrophils (%) (Auto) , Lymphocytes (%) ( Auto) , Monocytes (%) (Auto) , Eosinophils (%) (Auto) , Basophils (%) (Auto) , Differential Total Cells Counted 100, Neutrophils % (Manual) 74, Lymphocytes % ( Manual) 12L, Monocytes % (Manual) 4, Eosinophils % (Manual) 0, Basophils % ( Manual) 0, Band Neutrophils 10H, Platelet Estimate Adequate, Platelet Morphology Normal, Hypochromasia 1+, Sodium Level 131L, Potassium Level 3.6, Chloride Level 103, Carbon Dioxide Level 19L, Anion Gap 10, Blood Urea Nitrogen 10, Creatinine 0.7, Estimat Glomerular Filtration Rate , Glucose Level 131H, Calcium Level 7.7L, Total Bilirubin 0.3, Aspartate Amino Transf (AST/SGOT) 17, Alanine Aminotransferase (ALT/SGPT) 15, Alkaline Phosphatase 175H, Total Protein 5.2L, Albumin 1.3L, Globulin 3.9, Albumin/Globulin Ratio 0.3L Height (Feet): 5 Height (Inches): 2.00 Weight (Pounds): 109 General Appearance: no apparent distress, alert, confused, agitated Orestes Clemons M.D. January 21, 2018 14:00
--- NOTE | 2018-01-21 14:01 | Consultation ---
History of Present Illness General Date patient seen: January 20, 2018 Chief Complaint: Diarrhea Present Illness HPI 87-year-old female with history of cognitive impairment and psychosis, hip pain , peripheral artery disease. She was brought in with complaints of diarrhea. The patient has cognitive impairment and is a poor historian. the pt in addition is paranoid. Allergies: Coded Allergies: No Known Allergies (Unverified , 01/18/18) Medication History Unable to Obtain Active Prescriptions or Reported Meds Patient History Limited by: medical condition History Provided By: Patient, Medical Record, PMD Healthcare decision maker Resuscitation status Full Code Advanced Directive on File Past Medical/Surgical History Past Medical/Surgical History: (1) PAD (peripheral artery disease) (2) Colitis (3) Diarrhea (4) Hip pain Review of Systems Psychiatric: Reports: prior hx, anxiety, depressed feelings, emotional problems Physical Exam General Appearance: WD/WN, no apparent distress, alert, confused Last 24 Hour Vital Signs Date Time Temp Pulse Resp B/P (MAP) Pulse Ox O2 Delivery O2 Flow Rate FiO2 01/21/18 12:00 98.1 85 24 130/66 96 98.1 01/21/18 08:00 97.8 92 20 127/85 98 97.8 01/21/18 04:00 97.3 97 20 120/63 98 97.3 01/21/18 00:00 98.0 86 20 134/68 95 98.0 01/20/18 20:00 98.2 87 20 120/61 96 98.2 01/20/18 16:00 97.3 75 20 108/59 98 97.3 Intake and Output 01/20/18 01/21/18 19:00 07:00 Intake Total 825 ml 720 ml Balance 825 ml 720 ml Intake Oral 20 ml IV Total 825 ml 700 ml # Voids 4 2 # Bowel Movements 4 2 Laboratory Tests Test 01/21/18 11:30 White Blood Count 15.6 K/UL (4.8-10.8) H Red Blood Count 3.74 M/UL (4.20-5.40) L Hemoglobin 11.6 G/DL (12.0-16.0) L Hematocrit 35.9 % (37.0-47.0) L Mean Corpuscular Volume 96 FL (80-99) Mean Corpuscular Hemoglobin 30.9 PG (27.0-31.0) Mean Corpuscular Hemoglobin Concent 32.2 G/DL (32.0-36.0) Red Cell Distribution Width 12.4 % (11.6-14.8) Platelet Count 307 K/UL (150-450) Mean Platelet Volume 7.0 FL (6.5-10.1) Neutrophils (%) (Auto) % (45.0-75.0) Lymphocytes (%) (Auto) % (20.0-45.0) Monocytes (%) (Auto) % (1.0-10.0) Eosinophils (%) (Auto) % (0.0-3.0) Basophils (%) (Auto) % (0.0-2.0) Differential Total Cells Counted 100 Neutrophils % (Manual) 74 % (45-75) Lymphocytes % (Manual) 12 % (20-45) L Monocytes % (Manual) 4 % (1-10) Eosinophils % (Manual) 0 % (0-3) Basophils % (Manual) 0 % (0-2) Band Neutrophils 10 % (0-8) H Platelet Estimate Adequate Platelet Morphology Normal Hypochromasia 1+ Sodium Level 131 MMOL/L (136-145) L Potassium Level 3.6 MMOL/L (3.5-5.1) Chloride Level 103 MMOL/L (98-107) Carbon Dioxide Level 19 MMOL/L (21-32) L Anion Gap 10 mmol/L (5-15) Blood Urea Nitrogen 10 mg/dL (7-18) Creatinine 0.7 MG/DL (0.55-1.30) Estimat Glomerular Filtration Rate mL/min (>60) Glucose Level 131 MG/DL (74-106) H Calcium Level 7.7 MG/DL (8.5-10.1) L Total Bilirubin 0.3 MG/DL (0.2-1.0) Aspartate Amino Transf (AST/SGOT) 17 U/L (15-37) Alanine Aminotransferase (ALT/SGPT) 15 U/L (12-78) Alkaline Phosphatase 175 U/L (46-116) H Total Protein 5.2 G/DL (6.4-8.2) L Albumin 1.3 G/DL (3.4-5.0) L Globulin 3.9 g/dL Albumin/Globulin Ratio 0.3 (1.0-2.7) L Height (Feet): 5 Height (Inches): 2.00 Weight (Pounds): 109 Medications Current Medications Medications (Trade) Dose Ordered Sig/Stephanie Route PRN Reason Start Time Stop Time Status Last Admin Dose Admin Acetaminophen (Tylenol) 650 mg Q4H PRN ORAL Mild Pain/Temp > 100.5 01/18/18 18:00 02/17/18 17:59 01/20/18 04:31 Cholestyramine Resin (Questran) 4 gm THREE TIMES A DAY ORAL 01/19/18 09:00 02/18/18 08:59 01/21/18 10:02 Dextrose/Sodium Chloride 1,000 ml @ 50 mls/hr Q20H IV 01/20/18 18:00 02/19/18 17:59 01/20/18 17:43 Famotidine (Pepcid) 20 mg DAILY ORAL 01/20/18 09:00 02/19/18 08:59 01/21/18 10:02 Iopamidol (Isovue-300 100ml) 100 ml NOW PRN INJ Radiology Procedure 01/18/18 15:15 Lactobacillus Acidophilus (Culturelle) 1 tab THREE TIMES A DAY ORAL 01/19/18 13:00 02/18/18 12:59 01/21/18 10:02 Levothyroxine Sodium (Synthroid) 50 mcg DAILY@0630 ORAL 01/22/18 06:30 02/21/18 06:29 Metronidazole 100 ml @ 100 mls/hr Q8H IVPB 01/19/18 12:00 01/26/18 11:59 01/21/18 11:58 Olanzapine (ZyPREXA) 5 mg BEDTIME ORAL 01/20/18 21:00 02/19/18 20:59 01/20/18 21:54 Ondansetron HCl (Zofran) 4 mg Q6H PRN IVP Nausea & Vomiting 01/18/18 18:00 02/17/18 17:59 01/20/18 04:31 Vancomycin HCl (Vancomycin) 125 mg FOUR TIMES A DAY ORAL 01/19/18 10:30 01/26/18 10:29 01/21/18 10:02 Assessment/Plan Status: stable Assessment/Plan encephalopathy psychosis -zyprexa 5mg qhs -provided Orestes Broussard M.D. January 21, 2018 14:01
[2018-01-21] MEDS: D5NS 1,000 ML IV SCH (14:25)
--- NOTE | 2018-01-21 14:46 | Cardiology Report ---
APPROVED REPORT EKG Measurement Heart [id number] Sinus rhythm with marked sinus arrhythmia Low voltage QRS Borderline ECG
[2018-01-21 16:00] VITALS: BP 131/77
--- NOTE | 2018-01-21 19:57 | General Progress Note ---
Assessment/Plan Assessment/Plan Assessment - Diarrhea - C Diff colitis - declining WBC noted Recommendations - po vanco & Flagyl IV --> can reduce to single Rx soon - Questran - probiotics - H2B - po diet Subjective Allergies: Coded Allergies: No Known Allergies (Unverified , 01/18/18) Subjective more awake today no complaints Objective Last 24 Hour Vital Signs Date Time Temp Pulse Resp B/P (MAP) Pulse Ox O2 Delivery O2 Flow Rate FiO2 01/21/18 16:00 98.1 90 21 131/77 96 98.1 01/21/18 12:00 98.1 85 24 130/66 96 98.1 01/21/18 08:00 97.8 92 20 127/85 98 97.8 01/21/18 04:00 97.3 97 20 120/63 98 97.3 01/21/18 00:00 98.0 86 20 134/68 95 98.0 01/20/18 20:00 98.2 87 20 120/61 96 98.2 Intake and Output 01/20/18 01/21/18 19:00 07:00 Intake Total 825 ml 720 ml Balance 825 ml 720 ml Intake Oral 20 ml IV Total 825 ml 700 ml # Voids 4 2 # Bowel Movements 4 2 Laboratory Tests 01/21/18 11:30: White Blood Count 15.6H, Red Blood Count 3.74L, Hemoglobin 11.6L, Hematocrit 35.9L, Mean Corpuscular Volume 96, Mean Corpuscular Hemoglobin 30.9, Mean Corpuscular Hemoglobin Concent 32.2, Red Cell Distribution Width 12.4, Platelet Count 307, Mean Platelet Volume 7.0, Neutrophils (%) (Auto) , Lymphocytes (%) ( Auto) , Monocytes (%) (Auto) , Eosinophils (%) (Auto) , Basophils (%) (Auto) , Differential Total Cells Counted 100, Neutrophils % (Manual) 74, Lymphocytes % ( Manual) 12L, Monocytes % (Manual) 4, Eosinophils % (Manual) 0, Basophils % ( Manual) 0, Band Neutrophils 10H, Platelet Estimate Adequate, Platelet Morphology Normal, Hypochromasia 1+, Sodium Level 131L, Potassium Level 3.6, Chloride Level 103, Carbon Dioxide Level 19L, Anion Gap 10, Blood Urea Nitrogen 10, Creatinine 0.7, Estimat Glomerular Filtration Rate , Glucose Level 131H, Calcium Level 7.7L, Total Bilirubin 0.3, Aspartate Amino Transf (AST/SGOT) 17, Alanine Aminotransferase (ALT/SGPT) 15, Alkaline Phosphatase 175H, Total Protein 5.2L, Albumin 1.3L, Globulin 3.9, Albumin/Globulin Ratio 0.3L Height (Feet): 5 Height (Inches): 2.00 Weight (Pounds): 109 Objective Thin pale woman NCAT supple CTA RRR Soft NT, less distended no edema Jorge Peralta MD January 21, 2018 19:57
[2018-01-21 20:00] VITALS: BP 143/63
[2018-01-22] VITALS: BP 149/71
[2018-01-22 04:00] VITALS: BP 128/74
[2018-01-22 07:46] LABS: BASOPHILS % (AUTO) 0.4 % (0.0-2.0); EOSINOPHILS % (AUTO) 1.4 % (0.0-3.0); HEMATOCRIT 36.5 % (37.0-47.0); HEMOGLOBIN 12.2 G/DL (12.0-16.0); LYMPHOCYTES % (AUTO) 10.7 % (20.0-45.0); MEAN CORPUSCULAR VOLUME 94 FL (80-99); MONOCYTES % (AUTO) 8.3 % (1.0-10.0); NEUTROPHILS % (AUTO) 79.3 % (45.0-75.0); PLATELET COUNT 386 K/UL (150-450); RED BLOOD COUNT 3.89 M/UL (4.20-5.40); RED CELL DISTRIBUTION WIDTH 12.1 % (11.6-14.8); WHITE BLOOD COUNT 12.4 K/UL (4.8-10.8)
--- NOTE | 2018-01-22 07:54 | General Progress Note ---
Assessment/Plan Problem List: (1) PAD (peripheral artery disease) ICD Codes: I73.9 - Peripheral vascular disease, unspecified SNOMED: 824976332, 895926417 (2) Colitis ICD Codes: K52.9 - Noninfective gastroenteritis and colitis, unspecified SNOMED: 89025271 (3) Diarrhea ICD Codes: R19.7 - Diarrhea, unspecified SNOMED: 57714721 (4) Hip pain ICD Codes: M25.559 - Pain in unspecified hip SNOMED: 59834972 Status: stable, not improved Assessment/Plan po flagyl ivf questran monitor labs ivf zofran for nausea pt/ot snf placement requested by son Subjective ROS Limited/Unobtainable: Yes Constitutional: Reports: malaise, weakness HEENT: Reports: no symptoms Cardiovascular: Reports: no symptoms Respiratory: Reports: no symptoms Gastrointestinal/Abdominal: Reports: diarrhea Genitourinary: Reports: no symptoms Neurologic/Psychiatric: Reports: pre-existing deficit Endocrine: Reports: no symptoms Hematologic/Lymphatic: Reports: no symptoms Allergies: Coded Allergies: No Known Allergies (Unverified , 01/18/18) All Systems: reviewed and negative except above Subjective still having diarrhea. labs pending. compliant with abx Objective Last 24 Hour Vital Signs Date Time Temp Pulse Resp B/P (MAP) Pulse Ox O2 Delivery O2 Flow Rate FiO2 01/22/18 04:00 98.4 75 18 128/74 98 98.4 01/22/18 00:00 97.3 75 18 149/71 98 97.3 01/21/18 20:00 98.7 69 18 143/63 91 98.7 01/21/18 16:00 98.1 90 21 131/77 96 98.1 01/21/18 12:00 98.1 85 24 130/66 96 98.1 01/21/18 08:00 97.8 92 20 127/85 98 97.8 Intake and Output 01/21/18 01/22/18 19:00 07:00 Intake Total 1020 ml 695 ml Balance 1020 ml 695 ml Intake Oral 420 ml IV Total 600 ml 695 ml # Voids 4 4 # Bowel Movements 1 4 Laboratory Tests 01/21/18 11:30: White Blood Count 15.6H, Red Blood Count 3.74L, Hemoglobin 11.6L, Hematocrit 35.9L, Mean Corpuscular Volume 96, Mean Corpuscular Hemoglobin 30.9, Mean Corpuscular Hemoglobin Concent 32.2, Red Cell Distribution Width 12.4, Platelet Count 307, Mean Platelet Volume 7.0, Neutrophils (%) (Auto) , Lymphocytes (%) ( Auto) , Monocytes (%) (Auto) , Eosinophils (%) (Auto) , Basophils (%) (Auto) , Differential Total Cells Counted 100, Neutrophils % (Manual) 74, Lymphocytes % ( Manual) 12L, Monocytes % (Manual) 4, Eosinophils % (Manual) 0, Basophils % ( Manual) 0, Band Neutrophils 10H, Platelet Estimate Adequate, Platelet Morphology Normal, Hypochromasia 1+, Sodium Level 131L, Potassium Level 3.6, Chloride Level 103, Carbon Dioxide Level 19L, Anion Gap 10, Blood Urea Nitrogen 10, Creatinine 0.7, Estimat Glomerular Filtration Rate , Glucose Level 131H, Calcium Level 7.7L, Total Bilirubin 0.3, Aspartate Amino Transf (AST/SGOT) 17, Alanine Aminotransferase (ALT/SGPT) 15, Alkaline Phosphatase 175H, Total Protein 5.2L, Albumin 1.3L, Globulin 3.9, Albumin/Globulin Ratio 0.3L 01/22/18 06:25: White Blood Count 12.4H, Red Blood Count 3.89L, Hemoglobin 12.2, Hematocrit 36.5L, Mean Corpuscular Volume 94, Mean Corpuscular Hemoglobin 31.2H, Mean Corpuscular Hemoglobin Concent 33.3, Red Cell Distribution Width 12.1, Platelet Count 386, Mean Platelet Volume 7.2, Neutrophils (%) (Auto) 79.3H, Lymphocytes ( %) (Auto) 10.7L, Monocytes (%) (Auto) 8.3, Eosinophils (%) (Auto) 1.4, Basophils (%) (Auto) 0.4, Sodium Level [Pending], Potassium Level [Pending], Chloride Level [Pending], Carbon Dioxide Level [Pending], Blood Urea Nitrogen [ Pending], Creatinine [Pending], Estimat Glomerular Filtration Rate [Pending], Glucose Level [Pending], Calcium Level [Pending], Total Bilirubin [Pending], Aspartate Amino Transf (AST/SGOT) [Pending], Alanine Aminotransferase (ALT/SGPT ) [Pending], Alkaline Phosphatase [Pending], Total Protein [Pending], Albumin [ Pending], Globulin [Pending] Height (Feet): 5 Height (Inches): 2.00 Weight (Pounds): 134 Objective General Appearance: WD/WN, alert Neck: supple Cardiovascular: regular rhythm Respiratory/Chest: chest wall non-tender, lungs clear, normal breath sounds Abdomen: normal bowel sounds, non tender, soft, no organomegaly Edema: no edema noted Arm (L), no edema noted Arm (R), no edema noted Leg (L), no edema noted Leg (R), no edema noted Pedal (L), no edema noted Pedal (R), no edema noted Generalized JASS ALLEN January 22, 2018 07:54
[2018-01-22 07:55] LABS: ALANINE AMINOTRANSFERASE 25 U/L (12-78); ALBUMIN 1.3 G/DL (3.4-5.0); ALBUMIN/GLOBULIN RATIO 0.3 (1.0-2.7); ALKALINE PHOSPHATASE 298 U/L (46-116); ANION GAP 10 mmol/L (5-15); ASPARTATE AMINO TRANSFERASE 35 U/L (15-37); BILIRUBIN,TOTAL 0.3 MG/DL (0.2-1.0); BLOOD UREA NITROGEN 9 mg/dL (7-18); CALCIUM 7.8 MG/DL (8.5-10.1); CARBON DIOXIDE 18 MMOL/L (21-32); CHLORIDE 103 MMOL/L (98-107); CREATININE 0.7 MG/DL (0.55-1.30); POTASSIUM 3.5 MMOL/L (3.5-5.1); SODIUM 131 MMOL/L (136-145)
[2018-01-22 08:00] VITALS: BP 137/70
[2018-01-22] MEDS: Lactobacillus-GG tablet ORAL SCH ×3 (09:49→17:29)
[2018-01-22] MEDS: Cholestyramine 4gm Pkt ORAL SCH ×3 (09:49→17:29)
[2018-01-22] MEDS: Vancomycin oral 125mg/2.5ml ORAL SCH ×4 (09:49→20:43)
[2018-01-22] MEDS: D5NS 1,000 ML IV SCH (11:25)
[2018-01-22 12:00] VITALS: BP 126/67
--- NOTE | 2018-01-22 13:29 | Infectious Diseases Prog Note ---
Assessment/Plan Assessment/Plan A; Severe C. difficile colitis Hyponatremia Dementia PVD discontinue Iv Flagyl , continue PO Vancomycin Subjective ROS Limited/Unobtainable: Yes Allergies: Coded Allergies: No Known Allergies (Unverified , 01/18/18) Objective Vital Signs Last 24 Hour Vital Signs Date Time Temp Pulse Resp B/P (MAP) Pulse Ox O2 Delivery O2 Flow Rate FiO2 01/22/18 12:00 98.6 84 16 126/67 98 98.6 01/22/18 08:00 97.2 79 22 137/70 96 97.2 01/22/18 04:00 98.4 75 18 128/74 98 98.4 01/22/18 00:00 97.3 75 18 149/71 98 97.3 01/21/18 20:00 98.7 69 18 143/63 91 98.7 01/21/18 16:00 98.1 90 21 131/77 96 98.1 Height (Feet): 5 Height (Inches): 2.00 Weight (Pounds): 134 General Appearance: no acute distress HEENT: mucous membranes moist Respiratory/Chest: lungs clear Cardiovascular: normal rate Abdomen: soft, non tender Extremities: no edema Neurologic/Psychiatric: other - sleeping Laboratory Tests Test 01/22/18 06:25 White Blood Count 12.4 K/UL (4.8-10.8) H Red Blood Count 3.89 M/UL (4.20-5.40) L Hemoglobin 12.2 G/DL (12.0-16.0) Hematocrit 36.5 % (37.0-47.0) L Mean Corpuscular Volume 94 FL (80-99) Mean Corpuscular Hemoglobin 31.2 PG (27.0-31.0) H Mean Corpuscular Hemoglobin Concent 33.3 G/DL (32.0-36.0) Red Cell Distribution Width 12.1 % (11.6-14.8) Platelet Count 386 K/UL (150-450) Mean Platelet Volume 7.2 FL (6.5-10.1) Neutrophils (%) (Auto) 79.3 % (45.0-75.0) H Lymphocytes (%) (Auto) 10.7 % (20.0-45.0) L Monocytes (%) (Auto) 8.3 % (1.0-10.0) Eosinophils (%) (Auto) 1.4 % (0.0-3.0) Basophils (%) (Auto) 0.4 % (0.0-2.0) Sodium Level 131 MMOL/L (136-145) L Potassium Level 3.5 MMOL/L (3.5-5.1) Chloride Level 103 MMOL/L (98-107) Carbon Dioxide Level 18 MMOL/L (21-32) L Anion Gap 10 mmol/L (5-15) Blood Urea Nitrogen 9 mg/dL (7-18) Creatinine 0.7 MG/DL (0.55-1.30) Estimat Glomerular Filtration Rate mL/min (>60) Glucose Level 105 MG/DL (74-106) Calcium Level 7.8 MG/DL (8.5-10.1) L Total Bilirubin 0.3 MG/DL (0.2-1.0) Aspartate Amino Transf (AST/SGOT) 35 U/L (15-37) Alanine Aminotransferase (ALT/SGPT) 25 U/L (12-78) Alkaline Phosphatase 298 U/L (46-116) H Total Protein 5.3 G/DL (6.4-8.2) L Albumin 1.3 G/DL (3.4-5.0) L Globulin 4.0 g/dL Albumin/Globulin Ratio 0.3 (1.0-2.7) L Current Medications Medications (Trade) Dose Ordered Sig/Stephanie Route PRN Reason Start Time Stop Time Status Last Admin Dose Admin Acetaminophen (Tylenol) 650 mg Q4H PRN ORAL Mild Pain/Temp > 100.5 01/18/18 18:00 02/17/18 17:59 01/20/18 04:31 Cholestyramine Resin (Questran) 4 gm THREE TIMES A DAY ORAL 01/19/18 09:00 02/18/18 08:59 01/22/18 09:49 Dextrose/Sodium Chloride 1,000 ml @ 50 mls/hr Q20H IV 01/20/18 18:00 02/19/18 17:59 01/22/18 11:25 Famotidine (Pepcid) 20 mg DAILY ORAL 01/20/18 09:00 02/19/18 08:59 01/22/18 09:49 Lactobacillus Acidophilus (Culturelle) 1 tab THREE TIMES A DAY ORAL 01/19/18 13:00 02/18/18 12:59 01/22/18 09:49 Levothyroxine Sodium (Synthroid) 50 mcg DAILY@0630 ORAL 01/22/18 06:30 02/21/18 06:29 Metronidazole 100 ml @ 100 mls/hr Q8H IVPB 01/19/18 12:00 01/26/18 11:59 01/22/18 12:08 Olanzapine (ZyPREXA) 5 mg BEDTIME ORAL 01/20/18 21:00 02/19/18 20:59 01/21/18 20:23 Ondansetron HCl (Zofran) 4 mg Q6H PRN IVP Nausea & Vomiting 01/18/18 18:00 02/17/18 17:59 01/20/18 04:31 Vancomycin HCl (Vancomycin) 125 mg FOUR TIMES A DAY ORAL 01/19/18 10:30 01/26/18 10:29 01/22/18 09:49 KRISTIE ALVARENGA January 22, 2018 13:29
[2018-01-22 15:49] VITALS: BP 121/68
--- NOTE | 2018-01-22 16:02 | General Progress Note ---
Assessment/Plan Assessment/Plan encephalopathy psychosis -zyprexa 5mg qhs -provided ro Subjective Date patient seen: January 22, 2018 Neurologic/Psychiatric: Reports: anxiety, depressed, emotional problems Allergies: Coded Allergies: No Known Allergies (Unverified , 01/18/18) Subjective less paranoid. was screaming last night Objective Last 24 Hour Vital Signs Date Time Temp Pulse Resp B/P (MAP) Pulse Ox O2 Delivery O2 Flow Rate FiO2 01/22/18 15:49 97.8 85 16 121/68 97 97.8 01/22/18 12:00 98.6 84 16 126/67 98 98.6 01/22/18 08:00 97.2 79 22 137/70 96 97.2 01/22/18 04:00 98.4 75 18 128/74 98 98.4 01/22/18 00:00 97.3 75 18 149/71 98 97.3 01/21/18 20:00 98.7 69 18 143/63 91 98.7 Intake and Output 01/21/18 01/22/18 19:00 07:00 Intake Total 1020 ml 695 ml Balance 1020 ml 695 ml Intake Oral 420 ml IV Total 600 ml 695 ml # Voids 4 4 # Bowel Movements 1 4 Laboratory Tests 01/22/18 06:25: White Blood Count 12.4H, Red Blood Count 3.89L, Hemoglobin 12.2, Hematocrit 36.5L, Mean Corpuscular Volume 94, Mean Corpuscular Hemoglobin 31.2H, Mean Corpuscular Hemoglobin Concent 33.3, Red Cell Distribution Width 12.1, Platelet Count 386, Mean Platelet Volume 7.2, Neutrophils (%) (Auto) 79.3H, Lymphocytes ( %) (Auto) 10.7L, Monocytes (%) (Auto) 8.3, Eosinophils (%) (Auto) 1.4, Basophils (%) (Auto) 0.4, Sodium Level 131L, Potassium Level 3.5, Chloride Level 103, Carbon Dioxide Level 18L, Anion Gap 10, Blood Urea Nitrogen 9, Creatinine 0.7, Estimat Glomerular Filtration Rate , Glucose Level 105, Calcium Level 7.8L, Total Bilirubin 0.3, Aspartate Amino Transf (AST/SGOT) 35, Alanine Aminotransferase (ALT/SGPT) 25, Alkaline Phosphatase 298H, Total Protein 5.3L, Albumin 1.3L, Globulin 4.0, Albumin/Globulin Ratio 0.3L Height (Feet): 5 Height (Inches): 2.00 Weight (Pounds): 134 General Appearance: WD/WN, no apparent distress, alert, confused, agitated Orestes Clemons M.D. January 22, 2018 16:02
[2018-01-22 20:00] VITALS: BP 121/68
[2018-01-22] MEDS ORDERED: D5NS 1000ml IV ONE (22:33)
[2018-01-23] VITALS: BP 112/64
[2018-01-23 04:00] VITALS: BP 141/69
[2018-01-23] MEDS: D5NS 1,000 ML IV SCH (06:11)
--- NOTE | 2018-01-23 07:40 | General Progress Note ---
Assessment/Plan Problem List: (1) PAD (peripheral artery disease) ICD Codes: I73.9 - Peripheral vascular disease, unspecified SNOMED: 360210394, 137964165 (2) Colitis ICD Codes: K52.9 - Noninfective gastroenteritis and colitis, unspecified SNOMED: 31338648 (3) Diarrhea ICD Codes: R19.7 - Diarrhea, unspecified SNOMED: 27459643 (4) Hip pain ICD Codes: M25.559 - Pain in unspecified hip SNOMED: 98142742 Status: stable, not improved Assessment/Plan po flagyl ivf questran monitor labs ivf zofran for nausea pt/ot ID eval repat ct abd snf placement requested by son Subjective ROS Limited/Unobtainable: Yes Constitutional: Reports: malaise, weakness HEENT: Reports: no symptoms Cardiovascular: Reports: no symptoms Respiratory: Reports: no symptoms Gastrointestinal/Abdominal: Reports: diarrhea Genitourinary: Reports: no symptoms Neurologic/Psychiatric: Reports: anxiety, emotional problems, pre-existing deficit Endocrine: Reports: no symptoms Hematologic/Lymphatic: Reports: no symptoms Allergies: Coded Allergies: No Known Allergies (Unverified , 01/18/18) All Systems: reviewed and negative except above Subjective still having diarrhea. labs pending. compliant with abx. Objective Last 24 Hour Vital Signs Date Time Temp Pulse Resp B/P (MAP) Pulse Ox O2 Delivery O2 Flow Rate FiO2 01/23/18 04:00 97.4 73 20 141/69 98 97.4 01/23/18 00:00 97.3 75 20 112/64 94 97.3 01/22/18 20:00 97.7 88 20 121/68 94 97.7 01/22/18 15:49 97.8 85 16 121/68 97 97.8 01/22/18 12:00 98.6 84 16 126/67 98 98.6 01/22/18 08:00 97.2 79 22 137/70 96 97.2 Intake and Output 01/22/18 01/23/18 19:00 07:00 Intake Total 1200 ml 550 ml Balance 1200 ml 550 ml IV Total 600 ml 550 ml Other 600 ml # Voids 3 4 # Bowel Movements 3 2 Height (Feet): 5 Height (Inches): 2.00 Weight (Pounds): 134 Objective General Appearance: WD/WN, alert Neck: supple Cardiovascular: regular rhythm Respiratory/Chest: chest wall non-tender, lungs clear, normal breath sounds Abdomen: normal bowel sounds, non tender, soft, no organomegaly Edema: no edema noted Arm (L), no edema noted Arm (R), no edema noted Leg (L), no edema noted Leg (R), no edema noted Pedal (L), no edema noted Pedal (R), no edema noted Generalized JASS ALLEN January 23, 2018 07:40
[2018-01-23] MEDS ORDERED: Gastrograffin 30ml RECTAL PRN (07:45)
[2018-01-23 08:00] VITALS: BP 140/72
[2018-01-23] MEDS ORDERED: Gastrograffin 30ml ORAL PRN (08:26)
[2018-01-23] MEDS: Lactobacillus-GG tablet ORAL SCH ×4 (09:33→18:12)
[2018-01-23] MEDS: Vancomycin oral 125mg/2.5ml ORAL SCH (09:33)
[2018-01-23] MEDS: Cholestyramine 4gm Pkt ORAL SCH ×3 (09:33→18:00)
[2018-01-23 12:00] VITALS: BP 141/70
--- NOTE | 2018-01-23 14:22 | Diagnostic Imaging Report ---
Indication: Abdominal pain Technique: Spiral acquisitions obtained through the abdomen and pelvis. Patient ingested a limited amount of oral contrast, unable to tolerate No IV contrast utilized, per referring physician request.. Multiplanar reconstructions were generated. Total dose length product 662.39 mGycm. CTDIvol(s) 13.24 mGy. Dose reduction achieved using automated exposure control Comparison: 01/18/2018 Findings: There is marked colonic wall thickening again demonstrated. This is diffuse throughout the colon but it is particularly severe in the ascending colon. The extent of the wall thickening appears slightly increased from the prior study. No pneumatosis or portal venous gas. There is increased congestion of the mesenteric fat. There is also increased edema of the subcutaneous fat. Trace ascites fluid is evident, increased from the previous study. Contrast has traversed only a small portion of the small bowel. However, there is no small bowel distention noted. The appendix is not definitely demonstrated, but no findings to suggest acute appendicitis are evident. There is colonic diverticulosis. No free intraperitoneal air. Lack of IV contrast limits assessment of solid organs. The liver, gallbladder, bile ducts, pancreas, spleen adrenals, kidneys are all unremarkable. Previously demonstrated renal collecting system contrast is no longer evident. No retroperitoneal or mesenteric mass or adenopathy. No pelvic mass or adenopathy. The bladder is markedly distended. The uterus is not visualized, presumed surgically absent. 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 The included lung bases demonstrate bilateral pleural effusions, large on the right, moderate on the left, increased from the prior exam. The heart is mildly enlarged. Pericardial fluid is again demonstrated. There is compressive atelectasis of a significant portion of both lower lobes severe degenerative changes of both hips, left greater than right, are again demonstrated. Impression: Marked diffuse colonic wall thickening again demonstrated, likely reflecting diffuse colitis. This appears slightly worse than on the prior study. Appearance nonspecific as regards etiology. No evidence of portal venous gas Increased anasarca, with increasing bilateral pleural effusions, increasing ascites, increasing edema of the subcutaneous and mesenteric and retroperitoneal fat. Pericardial fluid remains stable Cardiomegaly Markedly distended bladder Colonic diverticulosis. No evidence of diverticulitis Compressive atelectasis of significant portions of both lower lobes related to the pleural effusions Other findings as noted, including bilateral hip degeneration, retroaortic left renal vein, prior hysterectomy The CT scanner at [facility] is accredited by the [employer] and the scans are performed using protocols designed to limit radiation exposure to as low as reasonably achievable to attain images of sufficient resolution adequate for diagnostic evaluation.
[2018-01-23 16:00] VITALS: BP 138/70
--- NOTE | 2018-01-23 16:03 | General Progress Note ---
Assessment/Plan Status: stable Assessment/Plan encephalopathy psychosis Lacks capacity -zyprexa 5mg qhs -provided ro Subjective Date patient seen: January 23, 2018 Neurologic/Psychiatric: Reports: anxiety, depressed, emotional problems Allergies: Coded Allergies: No Known Allergies (Unverified , 01/18/18) Subjective the pt is unable to make decisions. she is forgetful and illogical. Objective Last 24 Hour Vital Signs Date Time Temp Pulse Resp B/P (MAP) Pulse Ox O2 Delivery O2 Flow Rate FiO2 01/23/18 12:00 97.7 74 18 141/70 98 Room Air 97.7 01/23/18 08:00 97.8 76 18 140/72 99 Room Air 97.8 01/23/18 04:00 97.4 73 20 141/69 98 97.4 01/23/18 00:00 97.3 75 20 112/64 94 97.3 01/22/18 20:00 97.7 88 20 121/68 94 97.7 Intake and Output 01/22/18 01/23/18 19:00 07:00 Intake Total 1200 ml 550 ml Balance 1200 ml 550 ml IV Total 600 ml 550 ml Other 600 ml # Voids 3 4 # Bowel Movements 3 2 Height (Feet): 5 Height (Inches): 2.00 Weight (Pounds): 134 General Appearance: WD/WN, no apparent distress, alert Neurologic: oriented x 3 - to year and place Orestes Clemons M.D. January 23, 2018 16:03
--- NOTE | 2018-01-23 18:25 | General Progress Note ---
Assessment/Plan Assessment/Plan Assessment - Diarrhea - C Diff colitis - declining WBC noted Recommendations - po vanco & Flagyl IV --> can reduce to single Rx soon - Questran - probiotics - H2B - po diet (Delayed entry. Note is for 01/22/18 visit) Subjective Allergies: Coded Allergies: No Known Allergies (Unverified , 01/18/18) Subjective more awake today no complaints denies abd pain Objective Last 24 Hour Vital Signs Date Time Temp Pulse Resp B/P (MAP) Pulse Ox O2 Delivery O2 Flow Rate FiO2 01/23/18 16:00 98.0 73 18 138/70 98 Room Air 98.0 01/23/18 12:00 97.7 74 18 141/70 98 Room Air 97.7 01/23/18 08:00 97.8 76 18 140/72 99 Room Air 97.8 01/23/18 04:00 97.4 73 20 141/69 98 97.4 01/23/18 00:00 97.3 75 20 112/64 94 97.3 01/22/18 20:00 97.7 88 20 121/68 94 97.7 Intake and Output 01/22/18 01/23/18 19:00 07:00 Intake Total 1200 ml 550 ml Balance 1200 ml 550 ml IV Total 600 ml 550 ml Other 600 ml # Voids 3 4 # Bowel Movements 3 2 Height (Feet): 5 Height (Inches): 2.00 Weight (Pounds): 134 Objective Thin pale woman NCAT supple CTA RRR Soft NT, less distended no edema Jorge Peralta MD January 23, 2018 18:25
[2018-01-23 20:00] VITALS: BP 116/62
--- NOTE | 2018-01-23 23:12 | General Progress Note ---
Assessment/Plan Assessment/Plan Assessment - Diarrhea - C Diff colitis - CT findings may lag in resolution - declining WBC noted Recommendations - abx per ID - Questran - probiotics - H2B - po diet Subjective Allergies: Coded Allergies: No Known Allergies (Unverified , 01/18/18) Subjective calm no complaints CT noted Objective Last 24 Hour Vital Signs Date Time Temp Pulse Resp B/P (MAP) Pulse Ox O2 Delivery O2 Flow Rate FiO2 01/23/18 20:00 97.4 78 18 116/62 95 97.4 01/23/18 16:00 98.0 73 18 138/70 98 Room Air 98.0 01/23/18 12:00 97.7 74 18 141/70 98 Room Air 97.7 01/23/18 08:00 97.8 76 18 140/72 99 Room Air 97.8 01/23/18 04:00 97.4 73 20 141/69 98 97.4 01/23/18 00:00 97.3 75 20 112/64 94 97.3 Intake and Output 01/22/18 01/23/18 19:00 07:00 Intake Total 1200 ml 550 ml Balance 1200 ml 550 ml IV Total 600 ml 550 ml Other 600 ml # Voids 3 4 # Bowel Movements 3 2 Height (Feet): 5 Height (Inches): 2.00 Weight (Pounds): 134 Objective Thin pale woman NCAT supple CTA RRR Soft NT, mildly distended no edema Jorge Peralta MD January 23, 2018 23:12
[2018-01-24] VITALS: BP 132/69
[2018-01-24] MEDS: D5NS 1,000 ML IV SCH ×2 (02:04→20:39)
[2018-01-24 04:00] VITALS: BP 137/70
[2018-01-24 08:00] VITALS: BP 108/69
[2018-01-24] MEDS: Lactobacillus-GG tablet ORAL SCH ×3 (09:00→17:39)
[2018-01-24] MEDS: Cholestyramine 4gm Pkt ORAL SCH ×3 (09:00→17:39)
--- NOTE | 2018-01-24 09:23 | General Progress Note ---
Assessment/Plan Problem List: (1) PAD (peripheral artery disease) ICD Codes: I73.9 - Peripheral vascular disease, unspecified SNOMED: 444962442, 628980248 (2) Colitis ICD Codes: K52.9 - Noninfective gastroenteritis and colitis, unspecified SNOMED: 85604292 (3) Diarrhea ICD Codes: R19.7 - Diarrhea, unspecified SNOMED: 32485870 (4) Hip pain ICD Codes: M25.559 - Pain in unspecified hip SNOMED: 75030665 Status: stable, progressing Assessment/Plan dificid started by ID ivf questran monitor labs ivf zofran for nausea pt/ot snf placement requested by son Subjective ROS Limited/Unobtainable: Yes Constitutional: Reports: malaise, weakness HEENT: Reports: no symptoms Cardiovascular: Reports: no symptoms Respiratory: Reports: no symptoms Gastrointestinal/Abdominal: Reports: diarrhea Genitourinary: Reports: no symptoms Neurologic/Psychiatric: Reports: pre-existing deficit Endocrine: Reports: no symptoms Hematologic/Lymphatic: Reports: no symptoms Allergies: Coded Allergies: No Known Allergies (Unverified , 01/18/18) All Systems: reviewed and negative except above Subjective still having diarrhea. labs pending. compliant with abx. ct noted- ?worse Objective Last 24 Hour Vital Signs Date Time Temp Pulse Resp B/P (MAP) Pulse Ox O2 Delivery O2 Flow Rate FiO2 01/24/18 04:00 98.0 78 20 137/70 99 98.0 01/24/18 00:00 98.5 85 19 132/69 96 Room Air 98.5 01/23/18 20:00 97.4 78 18 116/62 95 97.4 01/23/18 16:00 98.0 73 18 138/70 98 Room Air 98.0 01/23/18 12:00 97.7 74 18 141/70 98 Room Air 97.7 Intake and Output 01/23/18 01/24/18 19:00 07:00 Intake Total 800 ml 200 ml Balance 800 ml 200 ml Intake Oral 800 ml IV Total 200 ml # Voids 5 1 # Bowel Movements 4 1 Height (Feet): 5 Height (Inches): 2.00 Weight (Pounds): 134 Objective General Appearance: WD/WN, alert Neck: supple Cardiovascular: regular rhythm Respiratory/Chest: chest wall non-tender, lungs clear, normal breath sounds Abdomen: normal bowel sounds, non tender, soft, no organomegaly Edema: no edema noted Arm (L), no edema noted Arm (R), no edema noted Leg (L), no edema noted Leg (R), no edema noted Pedal (L), no edema noted Pedal (R), no edema noted Generalized JASS ALLEN January 24, 2018 09:23
--- NOTE | 2018-01-24 10:59 | Infectious Diseases Prog Note ---
Assessment/Plan Assessment/Plan antibiotics : fidoxamicin A 1. c.diff colitis worsening 2. leucocytosis improving 3. hyponatremia improving 4. dementia P 1. vancomycin po, iv flagyl d/c 2. fidoxamicin started, continue 8 more days 3. will follow up clinically 4. d/w Dr Butler Subjective Constitutional: Denies: fever, chills Respiratory: Denies: shortness of breath, dry cough Gastrointestinal/Abdominal: Reports: diarrhea - decreased in frequency; Denies : nausea, vomiting Musculoskeletal: Denies: pain Allergies: Coded Allergies: No Known Allergies (Unverified , 01/18/18) Objective Vital Signs Last 24 Hour Vital Signs Date Time Temp Pulse Resp B/P (MAP) Pulse Ox O2 Delivery O2 Flow Rate FiO2 01/24/18 08:00 98.0 85 20 108/69 97 Room Air 98.0 01/24/18 04:00 98.0 78 20 137/70 99 98.0 01/24/18 00:00 98.5 85 19 132/69 96 Room Air 98.5 01/23/18 20:00 97.4 78 18 116/62 95 97.4 01/23/18 16:00 98.0 73 18 138/70 98 Room Air 98.0 01/23/18 12:00 97.7 74 18 141/70 98 Room Air 97.7 Height (Feet): 5 Height (Inches): 2.00 Weight (Pounds): 134 Respiratory/Chest: lungs clear Cardiovascular: normal rate, regular rhythm, no gallop/murmur Abdomen: soft, non tender, distended - less Extremities: no edema Current Medications Medications (Trade) Dose Ordered Sig/Stephanie Route PRN Reason Start Time Stop Time Status Last Admin Dose Admin Acetaminophen (Tylenol) 650 mg Q4H PRN ORAL Mild Pain/Temp > 100.5 01/18/18 18:00 02/17/18 17:59 01/22/18 20:44 Cholestyramine Resin (Questran) 4 gm THREE TIMES A DAY ORAL 01/19/18 09:00 02/18/18 08:59 01/23/18 13:20 Dextrose/Sodium Chloride 1,000 ml @ 50 mls/hr Q20H IV 01/20/18 18:00 02/19/18 17:59 01/24/18 02:04 Famotidine (Pepcid) 20 mg DAILY ORAL 01/20/18 09:00 02/19/18 08:59 01/23/18 09:33 Fidaxomicin (Dificid) 200 mg Q12H ORAL 01/23/18 12:00 01/30/18 11:59 01/24/18 00:01 Lactobacillus Acidophilus (Culturelle) 1 tab THREE TIMES A DAY ORAL 01/19/18 13:00 02/18/18 12:59 01/23/18 13:20 Levothyroxine Sodium (Synthroid) 50 mcg DAILY@0630 ORAL 01/22/18 06:30 02/21/18 06:29 01/24/18 05:59 Olanzapine (ZyPREXA) 5 mg BEDTIME ORAL 01/20/18 21:00 02/19/18 20:59 01/23/18 21:56 Ondansetron HCl (Zofran) 4 mg Q6H PRN IVP Nausea & Vomiting 01/18/18 18:00 02/17/18 17:59 01/20/18 04:31 TIARRA AREVALO January 24, 2018 10:59
[2018-01-24 12:00] VITALS: BP 118/66
--- NOTE | 2018-01-24 15:10 | General Progress Note ---
Assessment/Plan Status: stable Assessment/Plan encephalopathy psychosis Lacks capacity -zyprexa 5mg qhs -provided ro Subjective Date patient seen: January 24, 2018 Neurologic/Psychiatric: Reports: anxiety, depressed, emotional problems Allergies: Coded Allergies: No Known Allergies (Unverified , 01/18/18) Subjective the pt is more quiet. the pt is not able to have a rational conversation. knew that she was in the hospital Objective Last 24 Hour Vital Signs Date Time Temp Pulse Resp B/P (MAP) Pulse Ox O2 Delivery O2 Flow Rate FiO2 01/24/18 12:00 97.9 83 20 118/66 99 Room Air 97.9 01/24/18 08:00 98.0 85 20 108/69 97 Room Air 98.0 01/24/18 04:00 98.0 78 20 137/70 99 98.0 01/24/18 00:00 98.5 85 19 132/69 96 Room Air 98.5 01/23/18 20:00 97.4 78 18 116/62 95 97.4 01/23/18 16:00 98.0 73 18 138/70 98 Room Air 98.0 Intake and Output 01/23/18 01/24/18 19:00 07:00 Intake Total 800 ml 200 ml Balance 800 ml 200 ml Intake Oral 800 ml IV Total 200 ml # Voids 5 1 # Bowel Movements 4 1 Height (Feet): 5 Height (Inches): 2.00 Weight (Pounds): 134 General Appearance: WD/WN, no apparent distress, alert Neurologic: oriented x 3, responsive, depressed affect Orestes Clemons M.D. January 24, 2018 15:10
[2018-01-24 16:00] VITALS: BP 125/68
--- NOTE | 2018-01-24 18:35 | General Progress Note ---
Assessment/Plan Assessment/Plan Assessment - Diarrhea - C Diff colitis - now on Fidaxomicin - declining WBC noted - will re check in am Recommendations - abx per ID - Questran - probiotics - H2B - po diet - re check CBC in am Subjective Allergies: Coded Allergies: No Known Allergies (Unverified , 01/18/18) Subjective calm no complaints Objective Last 24 Hour Vital Signs Date Time Temp Pulse Resp B/P (MAP) Pulse Ox O2 Delivery O2 Flow Rate FiO2 01/24/18 16:00 98.9 80 20 125/68 97 Room Air 98.9 01/24/18 12:00 97.9 83 20 118/66 99 Room Air 97.9 01/24/18 08:00 98.0 85 20 108/69 97 Room Air 98.0 01/24/18 04:00 98.0 78 20 137/70 99 98.0 01/24/18 00:00 98.5 85 19 132/69 96 Room Air 98.5 01/23/18 20:00 97.4 78 18 116/62 95 97.4 Intake and Output 01/23/18 01/24/18 19:00 07:00 Intake Total 800 ml 200 ml Balance 800 ml 200 ml Intake Oral 800 ml IV Total 200 ml # Voids 5 1 # Bowel Movements 4 1 Height (Feet): 5 Height (Inches): 2.00 Weight (Pounds): 134 Objective Thin pale woman NCAT supple CTA RRR Soft NT, mildly distended no edema Jorge Peralta MD January 24, 2018 18:35
[2018-01-24 20:00] VITALS: BP 122/67
[2018-01-25] VITALS: BP 141/61
[2018-01-25 04:00] VITALS: BP 126/69
[2018-01-25 08:00] VITALS: BP 113/69
--- NOTE | 2018-01-25 08:05 | General Progress Note ---
Assessment/Plan Problem List: (1) PAD (peripheral artery disease) ICD Codes: I73.9 - Peripheral vascular disease, unspecified SNOMED: 486427790, 956700900 (2) Colitis ICD Codes: K52.9 - Noninfective gastroenteritis and colitis, unspecified SNOMED: 08281762 (3) Diarrhea ICD Codes: R19.7 - Diarrhea, unspecified SNOMED: 43689084 (4) Hip pain ICD Codes: M25.559 - Pain in unspecified hip SNOMED: 72314301 Status: stable, progressing Assessment/Plan dificid started by ID ivf questran monitor labs ivf- dc zofran for nausea pt/ot snf placement requested by son Subjective ROS Limited/Unobtainable: Yes Constitutional: Reports: malaise, weakness HEENT: Reports: no symptoms Cardiovascular: Reports: no symptoms Respiratory: Reports: no symptoms Gastrointestinal/Abdominal: Reports: diarrhea Genitourinary: Reports: no symptoms Neurologic/Psychiatric: Reports: no symptoms Endocrine: Reports: no symptoms Hematologic/Lymphatic: Reports: no symptoms Allergies: Coded Allergies: No Known Allergies (Unverified , 01/18/18) All Systems: reviewed and negative except above Subjective still having diarrhea but less. labs pending. compliant with abx. ct noted- ?worse. on deficid. appears to be responding Objective Last 24 Hour Vital Signs Date Time Temp Pulse Resp B/P (MAP) Pulse Ox O2 Delivery O2 Flow Rate FiO2 01/25/18 04:00 98.2 88 20 126/69 95 Room Air 98.2 01/25/18 00:00 98.0 86 18 141/61 94 Room Air 98.0 01/24/18 20:00 98.3 81 17 122/67 98 Room Air 98.3 01/24/18 16:00 98.9 80 20 125/68 97 Room Air 98.9 01/24/18 12:00 97.9 83 20 118/66 99 Room Air 97.9 Intake and Output 01/24/18 01/25/18 19:00 07:00 Intake Total 770 ml 740 ml Balance 770 ml 740 ml Intake Oral 720 ml 240 ml IV Total 50 ml 500 ml # Voids 2 # Bowel Movements 4 2 Height (Feet): 5 Height (Inches): 2.00 Weight (Pounds): 134 Objective General Appearance: WD/WN, alert Neck: supple Cardiovascular: regular rhythm Respiratory/Chest: chest wall non-tender, lungs clear, normal breath sounds Abdomen: normal bowel sounds, non tender, soft, no organomegaly Edema: no edema noted Arm (L), no edema noted Arm (R), no edema noted Leg (L), no edema noted Leg (R), no edema noted Pedal (L), no edema noted Pedal (R), no edema noted Generalized JASS ALLEN January 25, 2018 08:05
[2018-01-25] MEDS: Lactobacillus-GG tablet ORAL SCH ×3 (08:34→17:09)
[2018-01-25] MEDS: Cholestyramine 4gm Pkt ORAL SCH ×3 (08:34→17:09)
[2018-01-25 12:00] VITALS: BP 132/70
--- NOTE | 2018-01-25 12:41 | General Progress Note ---
Assessment/Plan Assessment/Plan - Diarrhea - C Diff colitis - now on Fidaxomicin - declining WBC noted - will re check in am Recommendations - abx per ID - probiotics - po diet - re check CBC in am --consider resuming po vanco and dc cholestyramine>>> defer to ID Subjective ROS Limited/Unobtainable: Yes Allergies: Coded Allergies: No Known Allergies (Unverified , 01/18/18) Subjective still has diarrhea Objective Last 24 Hour Vital Signs Date Time Temp Pulse Resp B/P (MAP) Pulse Ox O2 Delivery O2 Flow Rate FiO2 01/25/18 12:00 97.6 82 20 132/70 97 Room Air 97.6 01/25/18 08:00 97.6 91 20 113/69 98 Room Air 97.6 01/25/18 04:00 98.2 88 20 126/69 95 Room Air 98.2 01/25/18 00:00 98.0 86 18 141/61 94 Room Air 98.0 01/24/18 20:00 98.3 81 17 122/67 98 Room Air 98.3 01/24/18 16:00 98.9 80 20 125/68 97 Room Air 98.9 Intake and Output 01/24/18 01/25/18 19:00 07:00 Intake Total 770 ml 740 ml Balance 770 ml 740 ml Intake Oral 720 ml 240 ml IV Total 50 ml 500 ml # Voids 2 # Bowel Movements 4 2 Height (Feet): 5 Height (Inches): 2.00 Weight (Pounds): 134 General Appearance: alert EENT: normal ENT inspection Neck: supple Cardiovascular: normal rate Respiratory/Chest: lungs clear Abdomen: normal bowel sounds, non tender, soft Extremities: non-tender Lenin Fontanez MD January 25, 2018 12:41
[2018-01-25 16:00] VITALS: BP 121/59
[2018-01-25 19:59] VITALS: BP 135/77
--- NOTE | 2018-01-25 23:02 | General Progress Note ---
Assessment/Plan Assessment/Plan encephalopathy psychosis Lacks capacity -zyprexa 5mg qhs -provided ro Subjective Date patient seen: January 25, 2018 Neurologic/Psychiatric: Reports: anxiety, depressed, emotional problems Allergies: Coded Allergies: No Known Allergies (Unverified , 01/18/18) Subjective the pt is not able to have a rational conversation. knew that she was in the hospital Objective Last 24 Hour Vital Signs Date Time Temp Pulse Resp B/P (MAP) Pulse Ox O2 Delivery O2 Flow Rate FiO2 01/25/18 19:59 97.4 84 17 135/77 99 97.4 01/25/18 16:00 97.5 76 20 121/59 96 Room Air 97.5 01/25/18 12:00 97.6 82 20 132/70 97 Room Air 97.6 01/25/18 08:00 97.6 91 20 113/69 98 Room Air 97.6 01/25/18 04:00 98.2 88 20 126/69 95 Room Air 98.2 01/25/18 00:00 98.0 86 18 141/61 94 Room Air 98.0 Intake and Output 01/24/18 01/25/18 19:00 07:00 Intake Total 770 ml 740 ml Balance 770 ml 740 ml Intake Oral 720 ml 240 ml IV Total 50 ml 500 ml # Voids 2 # Bowel Movements 4 2 Height (Feet): 5 Height (Inches): 2.00 Weight (Pounds): 134 General Appearance: no apparent distress, alert Neurologic: oriented x 3, responsive Orestes Clemons M.D. January 25, 2018 23:02
[2018-01-26 00:31] VITALS: BP 131/68
[2018-01-26 04:25] VITALS: BP 130/70
[2018-01-26 08:00] VITALS: BP 119/73
--- NOTE | 2018-01-26 08:47 | General Progress Note ---
Assessment/Plan Assessment/Plan - Diarrhea - C Diff colitis - now on Fidaxomicin - declining WBC noted - will re check in am Recommendations - abx per ID - probiotics - po diet - re check CBC in am --consider resuming po vanco and dc cholestyramine>>> defer to ID Subjective ROS Limited/Unobtainable: Yes Allergies: Coded Allergies: No Known Allergies (Unverified , 01/18/18) Subjective still has diarrhea Objective Last 24 Hour Vital Signs Date Time Temp Pulse Resp B/P (MAP) Pulse Ox O2 Delivery O2 Flow Rate FiO2 01/26/18 08:00 97.4 74 21 119/73 97 97.4 01/26/18 04:25 98.1 80 19 130/70 96 98.1 01/26/18 00:31 97.0 82 18 131/68 97 97.0 01/25/18 19:59 97.4 84 17 135/77 99 97.4 01/25/18 16:00 97.5 76 20 121/59 96 Room Air 97.5 01/25/18 12:00 97.6 82 20 132/70 97 Room Air 97.6 Intake and Output 01/25/18 01/26/18 19:00 07:00 Intake Total 450 ml 50 ml Balance 450 ml 50 ml Intake Oral 400 ml 50 ml IV Total 50 ml # Voids 4 # Bowel Movements 4 3 Height (Feet): 5 Height (Inches): 2.00 Weight (Pounds): 134 General Appearance: alert EENT: normal ENT inspection Neck: supple Cardiovascular: normal rate Respiratory/Chest: decreased breath sounds Abdomen: normal bowel sounds, non tender, soft Extremities: non-tender Lenin Fontanez MD January 26, 2018 08:46
[2018-01-26] MEDS: Cholestyramine 4gm Pkt ORAL SCH ×4 (09:04→18:00)
[2018-01-26] MEDS: Lactobacillus-GG tablet ORAL SCH ×4 (09:04→18:00)
--- NOTE | 2018-01-26 09:38 | General Progress Note ---
Assessment/Plan Problem List: (1) PAD (peripheral artery disease) ICD Codes: I73.9 - Peripheral vascular disease, unspecified SNOMED: 982465168, 322306013 (2) Colitis ICD Codes: K52.9 - Noninfective gastroenteritis and colitis, unspecified SNOMED: 19231929 (3) Diarrhea ICD Codes: R19.7 - Diarrhea, unspecified SNOMED: 71582405 (4) Hip pain ICD Codes: M25.559 - Pain in unspecified hip SNOMED: 27782000 Status: stable, progressing Assessment/Plan dificid started by ID questran monitor labs ivf- dc zofran for nausea pt/ot snf placement requested by son Subjective ROS Limited/Unobtainable: No Constitutional: Reports: malaise, weakness HEENT: Reports: no symptoms Cardiovascular: Reports: no symptoms Respiratory: Reports: no symptoms Gastrointestinal/Abdominal: Reports: diarrhea Genitourinary: Reports: no symptoms Neurologic/Psychiatric: Reports: pre-existing deficit Endocrine: Reports: no symptoms Hematologic/Lymphatic: Reports: no symptoms Allergies: Coded Allergies: No Known Allergies (Unverified , 01/18/18) All Systems: reviewed and negative except above Subjective no events. still with diarrhea. 6 episodes yesterday Objective Last 24 Hour Vital Signs Date Time Temp Pulse Resp B/P (MAP) Pulse Ox O2 Delivery O2 Flow Rate FiO2 01/26/18 08:00 97.4 74 21 119/73 97 97.4 01/26/18 04:25 98.1 80 19 130/70 96 98.1 01/26/18 00:31 97.0 82 18 131/68 97 97.0 01/25/18 19:59 97.4 84 17 135/77 99 97.4 01/25/18 16:00 97.5 76 20 121/59 96 Room Air 97.5 01/25/18 12:00 97.6 82 20 132/70 97 Room Air 97.6 Intake and Output 01/25/18 01/26/18 19:00 07:00 Intake Total 450 ml 50 ml Balance 450 ml 50 ml Intake Oral 400 ml 50 ml IV Total 50 ml # Voids 4 # Bowel Movements 4 3 Height (Feet): 5 Height (Inches): 2.00 Weight (Pounds): 134 Objective General Appearance: WD/WN, alert Neck: supple Cardiovascular: regular rhythm Respiratory/Chest: chest wall non-tender, lungs clear, normal breath sounds Abdomen: normal bowel sounds, non tender, soft, no organomegaly Edema: no edema noted Arm (L), no edema noted Arm (R), no edema noted Leg (L), no edema noted Leg (R), no edema noted Pedal (L), no edema noted Pedal (R), no edema noted Generalized JASS ALLEN January 26, 2018 09:38
--- NOTE | 2018-01-26 10:30 | Infectious Diseases Prog Note ---
Assessment/Plan Assessment/Plan antibiotics : fidoxamicin A 1. c.diff colitis 2. leucocytosis improving 3. hyponatremia improving 4. dementia P 1. restart vancomycin po 2. continue fidoxamicin 6 more days 3. will follow up clinically Subjective ROS Limited/Unobtainable: Yes Constitutional: Denies: fever, chills Respiratory: Denies: shortness of breath, dry cough Gastrointestinal/Abdominal: Reports: diarrhea; Denies: nausea, vomiting Musculoskeletal: Denies: pain Allergies: Coded Allergies: No Known Allergies (Unverified , 01/18/18) Objective Vital Signs Last 24 Hour Vital Signs Date Time Temp Pulse Resp B/P (MAP) Pulse Ox O2 Delivery O2 Flow Rate FiO2 01/26/18 08:00 97.4 74 21 119/73 97 97.4 01/26/18 04:25 98.1 80 19 130/70 96 98.1 01/26/18 00:31 97.0 82 18 131/68 97 97.0 01/25/18 19:59 97.4 84 17 135/77 99 97.4 01/25/18 16:00 97.5 76 20 121/59 96 Room Air 97.5 01/25/18 12:00 97.6 82 20 132/70 97 Room Air 97.6 Height (Feet): 5 Height (Inches): 2.00 Weight (Pounds): 134 Respiratory/Chest: lungs clear Cardiovascular: normal rate, regular rhythm, no gallop/murmur Abdomen: distended Extremities: no edema Current Medications Medications (Trade) Dose Ordered Sig/Stephanie Route PRN Reason Start Time Stop Time Status Last Admin Dose Admin Acetaminophen (Tylenol) 650 mg Q4H PRN ORAL Mild Pain/Temp > 100.5 01/18/18 18:00 02/17/18 17:59 01/22/18 20:44 Cholestyramine Resin (Questran) 4 gm THREE TIMES A DAY ORAL 01/19/18 09:00 02/18/18 08:59 01/26/18 09:04 Famotidine (Pepcid) 20 mg DAILY ORAL 01/20/18 09:00 02/19/18 08:59 01/26/18 09:04 Fidaxomicin (Dificid) 200 mg Q12HR ORAL 01/25/18 09:00 02/01/18 08:59 01/26/18 09:04 Lactobacillus Acidophilus (Culturelle) 1 tab THREE TIMES A DAY ORAL 01/19/18 13:00 02/18/18 12:59 01/26/18 09:04 Levothyroxine Sodium (Synthroid) 50 mcg DAILY@0630 ORAL 01/22/18 06:30 02/21/18 06:29 01/26/18 05:43 Olanzapine (ZyPREXA) 5 mg BEDTIME ORAL 01/20/18 21:00 02/19/18 20:59 01/25/18 20:38 Ondansetron HCl (Zofran) 4 mg Q6H PRN IVP Nausea & Vomiting 01/18/18 18:00 02/17/18 17:59 01/20/18 04:31 TIARRA AREVALO January 26, 2018 10:30
[2018-01-26 12:00] VITALS: BP 143/78
[2018-01-26] MEDS: Vancomycin oral 125mg/2.5ml ORAL SCH ×4 (13:00→21:00)
[2018-01-26 16:00] VITALS: BP 116/74
[2018-01-26 20:00] VITALS: BP 129/84
[2018-01-27] VITALS: BP 133/73
[2018-01-27 04:00] VITALS: BP 136/70
--- NOTE | 2018-01-27 07:58 | General Progress Note ---
Assessment/Plan Problem List: (1) PAD (peripheral artery disease) ICD Codes: I73.9 - Peripheral vascular disease, unspecified SNOMED: 703088455, 381871602 (2) Colitis ICD Codes: K52.9 - Noninfective gastroenteritis and colitis, unspecified SNOMED: 93261477 (3) Diarrhea ICD Codes: R19.7 - Diarrhea, unspecified SNOMED: 56409782 (4) Hip pain ICD Codes: M25.559 - Pain in unspecified hip SNOMED: 47098653 Status: stable Assessment/Plan dificid started by KEVIN kim not helping- will dc monitor labs ivf if needed- await labs zofran for nausea pt/ot snf placement requested by son Subjective ROS Limited/Unobtainable: Yes Constitutional: Reports: malaise, weakness HEENT: Reports: no symptoms Cardiovascular: Reports: no symptoms Respiratory: Reports: no symptoms Gastrointestinal/Abdominal: Reports: diarrhea Genitourinary: Reports: no symptoms Neurologic/Psychiatric: Reports: no symptoms Endocrine: Reports: no symptoms Hematologic/Lymphatic: Reports: no symptoms Allergies: Coded Allergies: No Known Allergies (Unverified , 01/18/18) All Systems: reviewed and negative except above Subjective no events. still with diarrhea. refusing labs Objective Last 24 Hour Vital Signs Date Time Temp Pulse Resp B/P (MAP) Pulse Ox O2 Delivery O2 Flow Rate FiO2 01/27/18 04:00 97.4 83 18 136/70 100 97.4 01/27/18 00:00 98.1 76 18 133/73 98 98.1 01/26/18 20:00 97.4 54 18 129/84 96 97.4 01/26/18 16:00 97.8 92 20 116/74 97 Room Air 97.8 01/26/18 12:00 97.6 96 20 143/78 96 Room Air 97.6 01/26/18 08:00 97.4 74 21 119/73 97 97.4 Intake and Output 01/26/18 01/27/18 19:00 07:00 Intake Total 480 ml Balance 480 ml Intake Oral 480 ml # Voids 5 3 # Bowel Movements 4 2 Height (Feet): 5 Height (Inches): 2.00 Weight (Pounds): 134 Objective General Appearance: WD/WN, alert Neck: supple Cardiovascular: regular rhythm Respiratory/Chest: chest wall non-tender, lungs clear, normal breath sounds Abdomen: normal bowel sounds, non tender, soft, no organomegaly Edema: no edema noted Arm (L), no edema noted Arm (R), no edema noted Leg (L), no edema noted Leg (R), no edema noted Pedal (L), no edema noted Pedal (R), no edema noted Generalized JASS ALLEN January 27, 2018 07:58
[2018-01-27 07:59] VITALS: BP 116/64
[2018-01-27 08:32] LABS: BASOPHILS % (AUTO) 0.9 % (0.0-2.0); EOSINOPHILS % (AUTO) 1.1 % (0.0-3.0); HEMATOCRIT 38.2 % (37.0-47.0); HEMOGLOBIN 12.8 G/DL (12.0-16.0); LYMPHOCYTES % (AUTO) 21.1 % (20.0-45.0); MEAN CORPUSCULAR VOLUME 95 FL (80-99); MONOCYTES % (AUTO) 7.1 % (1.0-10.0); NEUTROPHILS % (AUTO) 69.8 % (45.0-75.0); PLATELET COUNT 637 K/UL (150-450); RED BLOOD COUNT 4.03 M/UL (4.20-5.40); RED CELL DISTRIBUTION WIDTH 12.2 % (11.6-14.8); WHITE BLOOD COUNT 7.6 K/UL (4.8-10.8)
[2018-01-27] MEDS: Lactobacillus-GG tablet ORAL SCH ×3 (09:00→18:02)
[2018-01-27] MEDS: Vancomycin oral 125mg/2.5ml ORAL SCH ×4 (09:00→22:02)
--- NOTE | 2018-01-27 09:05 | General Progress Note ---
Assessment/Plan Assessment/Plan - Diarrhea - C Diff colitis - now on Fidaxomicin -patient refusing medication Recommendations - abx per ID - probiotics - po diet - re check CBC in am --back on po vanco -will dc cholestyramine and pepcid Subjective ROS Limited/Unobtainable: Yes Allergies: Coded Allergies: No Known Allergies (Unverified , 01/18/18) Subjective still has diarrhea Objective Last 24 Hour Vital Signs Date Time Temp Pulse Resp B/P (MAP) Pulse Ox O2 Delivery O2 Flow Rate FiO2 01/27/18 07:59 97.2 77 19 116/64 97 Room Air 97.2 01/27/18 04:00 97.4 83 18 136/70 100 97.4 01/27/18 00:00 98.1 76 18 133/73 98 98.1 01/26/18 20:00 97.4 54 18 129/84 96 97.4 01/26/18 16:00 97.8 92 20 116/74 97 Room Air 97.8 01/26/18 12:00 97.6 96 20 143/78 96 Room Air 97.6 Intake and Output 01/26/18 01/27/18 19:00 07:00 Intake Total 480 ml Balance 480 ml Intake Oral 480 ml # Voids 5 3 # Bowel Movements 4 2 Laboratory Tests 01/27/18 07:00: White Blood Count 7.6, Red Blood Count 4.03L, Hemoglobin 12.8, Hematocrit 38.2, Mean Corpuscular Volume 95, Mean Corpuscular Hemoglobin 31.8H, Mean Corpuscular Hemoglobin Concent 33.4, Red Cell Distribution Width 12.2, Platelet Count 637H, Mean Platelet Volume 5.2L, Neutrophils (%) (Auto) 69.8, Lymphocytes (%) (Auto) 21.1, Monocytes (%) (Auto) 7.1, Eosinophils (%) (Auto) 1.1, Basophils (%) (Auto ) 0.9, Sodium Level [Pending], Potassium Level [Pending], Chloride Level [ Pending], Carbon Dioxide Level [Pending], Blood Urea Nitrogen [Pending], Creatinine [Pending], Estimat Glomerular Filtration Rate [Pending], Glucose Level [Pending], Calcium Level [Pending], Total Bilirubin [Pending], Aspartate Amino Transf (AST/SGOT) [Pending], Alanine Aminotransferase (ALT/SGPT) [Pending] , Alkaline Phosphatase [Pending], Total Protein [Pending], Albumin [Pending], Globulin [Pending] Height (Feet): 5 Height (Inches): 2.00 Weight (Pounds): 134 General Appearance: alert EENT: normal ENT inspection Neck: supple Cardiovascular: normal rate Respiratory/Chest: decreased breath sounds Abdomen: normal bowel sounds, non tender, soft Extremities: non-tender Lenin Fontanez MD January 27, 2018 09:04
[2018-01-27 09:12] LABS: ALANINE AMINOTRANSFERASE 24 U/L (12-78); ALBUMIN 1.1 G/DL (3.4-5.0); ALBUMIN/GLOBULIN RATIO 0.3 (1.0-2.7); ALKALINE PHOSPHATASE 200 U/L (46-116); ANION GAP 7 mmol/L (5-15); ASPARTATE AMINO TRANSFERASE 45 U/L (15-37); BILIRUBIN,TOTAL 0.3 MG/DL (0.2-1.0); BLOOD UREA NITROGEN 12 mg/dL (7-18); CALCIUM 7.5 MG/DL (8.5-10.1); CARBON DIOXIDE 20 MMOL/L (21-32); CHLORIDE 103 MMOL/L (98-107); CREATININE 0.6 MG/DL (0.55-1.30); POTASSIUM 5.2 MMOL/L (3.5-5.1); SODIUM 130 MMOL/L (136-145)
[2018-01-27 11:56] VITALS: BP 123/73
--- NOTE | 2018-01-27 12:19 | General Progress Note ---
Assessment/Plan Status: stable Assessment/Plan encephalopathy psychosis Lacks capacity -zyprexa 5mg qhs -provided ro -the pt may not refuse meds Subjective Date patient seen: January 27, 2018 Neurologic/Psychiatric: Reports: anxiety, depressed Allergies: Coded Allergies: No Known Allergies (Unverified , 01/18/18) Subjective the pt is not able to have a rational conversation. The pt refused all her meds. The pt lacks capacity. Objective Last 24 Hour Vital Signs Date Time Temp Pulse Resp B/P (MAP) Pulse Ox O2 Delivery O2 Flow Rate FiO2 01/27/18 11:56 97.6 86 20 123/73 95 Room Air 97.6 01/27/18 07:59 97.2 77 19 116/64 97 Room Air 97.2 01/27/18 04:00 97.4 83 18 136/70 100 97.4 01/27/18 00:00 98.1 76 18 133/73 98 98.1 01/26/18 20:00 97.4 54 18 129/84 96 97.4 01/26/18 16:00 97.8 92 20 116/74 97 Room Air 97.8 Intake and Output 01/26/18 01/27/18 19:00 07:00 Intake Total 480 ml Balance 480 ml Intake Oral 480 ml # Voids 5 3 # Bowel Movements 4 2 Laboratory Tests 01/27/18 07:00: White Blood Count 7.6, Red Blood Count 4.03L, Hemoglobin 12.8, Hematocrit 38.2, Mean Corpuscular Volume 95, Mean Corpuscular Hemoglobin 31.8H, Mean Corpuscular Hemoglobin Concent 33.4, Red Cell Distribution Width 12.2, Platelet Count 637H, Mean Platelet Volume 5.2L, Neutrophils (%) (Auto) 69.8, Lymphocytes (%) (Auto) 21.1, Monocytes (%) (Auto) 7.1, Eosinophils (%) (Auto) 1.1, Basophils (%) (Auto ) 0.9, Sodium Level 130L, Potassium Level 5.2H, Chloride Level 103, Carbon Dioxide Level 20L, Anion Gap 7, Blood Urea Nitrogen 12, Creatinine 0.6, Estimat Glomerular Filtration Rate , Glucose Level 104, Calcium Level 7.5L, Total Bilirubin 0.3, Aspartate Amino Transf (AST/SGOT) 45H, Alanine Aminotransferase ( ALT/SGPT) 24, Alkaline Phosphatase 200H, Total Protein 4.8L, Albumin 1.1L, Globulin 3.7, Albumin/Globulin Ratio 0.3L Height (Feet): 5 Height (Inches): 2.00 Weight (Pounds): 134 General Appearance: WD/WN, no apparent distress, alert, confused Orestes Clemons M.D. January 27, 2018 12:18
[2018-01-27 15:55] VITALS: BP 146/77
[2018-01-27 20:00] VITALS: BP 131/87
[2018-01-28] VITALS: BP 117/78
[2018-01-28 04:00] VITALS: BP 130/75
[2018-01-28 08:00] VITALS: BP 122/74
[2018-01-28] MEDS: Vancomycin oral 125mg/2.5ml ORAL SCH ×5 (08:35→20:37)
[2018-01-28] MEDS: Lactobacillus-GG tablet ORAL SCH ×3 (08:35→17:20)
--- NOTE | 2018-01-28 08:54 | General Progress Note ---
Assessment/Plan Problem List: (1) PAD (peripheral artery disease) ICD Codes: I73.9 - Peripheral vascular disease, unspecified SNOMED: 655738680, 961499262 (2) Colitis ICD Codes: K52.9 - Noninfective gastroenteritis and colitis, unspecified SNOMED: 95546136 (3) Diarrhea ICD Codes: R19.7 - Diarrhea, unspecified SNOMED: 90066460 (4) Hip pain ICD Codes: M25.559 - Pain in unspecified hip SNOMED: 21578281 Status: stable, progressing Assessment/Plan dificid started by KEVIN kim not helping- will dc monitor labs ivf if needed- await labs zofran for nausea pt/ot snf placement requested by son Subjective ROS Limited/Unobtainable: No Constitutional: Reports: malaise, weakness HEENT: Reports: no symptoms Cardiovascular: Reports: no symptoms Respiratory: Reports: no symptoms Gastrointestinal/Abdominal: Reports: no symptoms Genitourinary: Reports: no symptoms Neurologic/Psychiatric: Reports: no symptoms Endocrine: Reports: no symptoms Hematologic/Lymphatic: Reports: no symptoms Allergies: Coded Allergies: No Known Allergies (Unverified , 01/18/18) All Systems: reviewed and negative except above Subjective no events. still with diarrhea- 3 episodes last night. refusing labs. took meds last night but according to night nurse pt occasionally refuses abx Objective Last 24 Hour Vital Signs Date Time Temp Pulse Resp B/P (MAP) Pulse Ox O2 Delivery O2 Flow Rate FiO2 01/28/18 04:00 97.3 62 18 130/75 96 97.3 01/28/18 00:00 97.4 72 18 117/78 98 97.4 01/27/18 20:00 97.6 76 18 131/87 100 97.6 01/27/18 15:55 97.1 70 19 146/77 97 Room Air 97.1 01/27/18 11:56 97.6 86 20 123/73 95 Room Air 97.6 Intake and Output 01/27/18 01/28/18 19:00 07:00 Intake Total 720 ml Balance 720 ml Intake Oral 720 ml # Voids 3 # Bowel Movements 5 3 Height (Feet): 5 Height (Inches): 2.00 Weight (Pounds): 134 Objective General Appearance: WD/WN, alert Neck: supple Cardiovascular: regular rhythm Respiratory/Chest: chest wall non-tender, lungs clear, normal breath sounds Abdomen: normal bowel sounds, non tender, soft, no organomegaly Edema: no edema noted Arm (L), no edema noted Arm (R), no edema noted Leg (L), no edema noted Leg (R), no edema noted Pedal (L), no edema noted Pedal (R), no edema noted Generalized JASS ALLEN January 28, 2018 08:54
[2018-01-28 11:45] VITALS: BP 130/77
--- NOTE | 2018-01-28 13:06 | Infectious Diseases Prog Note ---
Assessment/Plan Assessment/Plan A; Severe C. difficile colitis Leukocytosis resolved Decreased albumin Hyponatremia Dementia PVD P: continue Dificid X 4 days continue PO Vancomycin Subjective ROS Limited/Unobtainable: Yes Constitutional: Reports: other - doing better Gastrointestinal/Abdominal: Reports: diarrhea Allergies: Coded Allergies: No Known Allergies (Unverified , 01/18/18) Objective Vital Signs Last 24 Hour Vital Signs Date Time Temp Pulse Resp B/P (MAP) Pulse Ox O2 Delivery O2 Flow Rate FiO2 01/28/18 11:45 97.6 66 16 130/77 97 Room Air 97.6 01/28/18 08:00 98.5 82 16 122/74 98 Room Air 98.5 01/28/18 04:00 97.3 62 18 130/75 96 97.3 01/28/18 00:00 97.4 72 18 117/78 98 97.4 01/27/18 20:00 97.6 76 18 131/87 100 97.6 01/27/18 15:55 97.1 70 19 146/77 97 Room Air 97.1 Height (Feet): 5 Height (Inches): 2.00 Weight (Pounds): 134 General Appearance: no acute distress HEENT: mucous membranes moist Respiratory/Chest: lungs clear Cardiovascular: normal rate Abdomen: soft, non tender Extremities: no edema Current Medications Medications (Trade) Dose Ordered Sig/Stephanie Route PRN Reason Start Time Stop Time Status Last Admin Dose Admin Acetaminophen (Tylenol) 650 mg Q4H PRN ORAL Mild Pain/Temp > 100.5 01/18/18 18:00 02/17/18 17:59 01/22/18 20:44 Fidaxomicin (Dificid) 200 mg Q12HR ORAL 01/25/18 09:00 02/01/18 08:59 01/28/18 08:35 Lactobacillus Acidophilus (Culturelle) 1 tab THREE TIMES A DAY ORAL 01/19/18 13:00 02/18/18 12:59 01/28/18 12:55 Levothyroxine Sodium (Synthroid) 50 mcg DAILY@0630 ORAL 01/22/18 06:30 02/21/18 06:29 01/26/18 05:43 Olanzapine (ZyPREXA) 5 mg BEDTIME ORAL 01/20/18 21:00 02/19/18 20:59 01/27/18 22:03 Ondansetron HCl (Zofran) 4 mg Q6H PRN IVP Nausea & Vomiting 01/18/18 18:00 02/17/18 17:59 01/20/18 04:31 Vancomycin HCl (Vancomycin) 500 mg FOUR TIMES A DAY ORAL 01/26/18 13:00 02/02/18 12:59 01/28/18 12:57 KRISTIE ALVARENGA January 28, 2018 13:06
[2018-01-28 16:00] VITALS: BP 119/74
[2018-01-28 20:00] VITALS: BP 117/66
--- NOTE | 2018-01-28 23:22 | General Progress Note ---
Assessment/Plan Assessment/Plan Assessment - C Diff colitis - now on Fidaxomicin - WBC now normal - malnutrition, low albumin - abnormal LFT Recommendations - abx per ID - Questran - probiotics - H2B - po diet - check abd U/S Subjective Allergies: Coded Allergies: No Known Allergies (Unverified , 01/18/18) Subjective denies complaints minimally interactive poor po Objective Last 24 Hour Vital Signs Date Time Temp Pulse Resp B/P (MAP) Pulse Ox O2 Delivery O2 Flow Rate FiO2 01/28/18 20:00 97.5 92 19 117/66 98 97.5 01/28/18 16:00 97.7 77 18 119/74 94 Room Air 97.7 01/28/18 11:45 97.6 66 16 130/77 97 Room Air 97.6 01/28/18 08:00 98.5 82 16 122/74 98 Room Air 98.5 01/28/18 04:00 97.3 62 18 130/75 96 97.3 01/28/18 00:00 97.4 72 18 117/78 98 97.4 Intake and Output 01/27/18 01/28/18 19:00 07:00 Intake Total 720 ml Balance 720 ml Intake Oral 720 ml # Voids 3 # Bowel Movements 5 3 Height (Feet): 5 Height (Inches): 2.00 Weight (Pounds): 134 Objective Thin pale woman NCAT supple CTA RRR Soft NT, less distended no edema Jorge Peralta MD January 28, 2018 23:22
--- NOTE | 2018-01-28 23:40 | General Progress Note ---
Assessment/Plan Assessment/Plan encephalopathy psychosis Lacks capacity -zyprexa 5mg qhs -provided ro -the pt may not refuse meds Subjective Neurologic/Psychiatric: Reports: anxiety, depressed, emotional problems Allergies: Coded Allergies: No Known Allergies (Unverified , 01/18/18) Subjective the pt took meds, confused Objective Last 24 Hour Vital Signs Date Time Temp Pulse Resp B/P (MAP) Pulse Ox O2 Delivery O2 Flow Rate FiO2 01/28/18 20:00 97.5 92 19 117/66 98 97.5 01/28/18 16:00 97.7 77 18 119/74 94 Room Air 97.7 01/28/18 11:45 97.6 66 16 130/77 97 Room Air 97.6 01/28/18 08:00 98.5 82 16 122/74 98 Room Air 98.5 01/28/18 04:00 97.3 62 18 130/75 96 97.3 01/28/18 00:00 97.4 72 18 117/78 98 97.4 Intake and Output 01/27/18 01/28/18 19:00 07:00 Intake Total 720 ml Balance 720 ml Intake Oral 720 ml # Voids 3 # Bowel Movements 5 3 Height (Feet): 5 Height (Inches): 2.00 Weight (Pounds): 134 Orestes Clemons M.D. January 28, 2018 23:40
[2018-01-29] VITALS: BP 117/66
[2018-01-29 04:00] VITALS: BP 131/69
--- NOTE | 2018-01-29 07:41 | General Progress Note ---
Assessment/Plan Problem List: (1) PAD (peripheral artery disease) ICD Codes: I73.9 - Peripheral vascular disease, unspecified SNOMED: 054239738, 792888115 (2) Colitis ICD Codes: K52.9 - Noninfective gastroenteritis and colitis, unspecified SNOMED: 22400810 (3) Diarrhea ICD Codes: R19.7 - Diarrhea, unspecified SNOMED: 39990404 (4) Hip pain ICD Codes: M25.559 - Pain in unspecified hip SNOMED: 30265288 Status: stable, progressing Assessment/Plan dificid started by ID monitor labs ivf zofran for nausea pt/ot dc planning snf Subjective ROS Limited/Unobtainable: Yes Constitutional: Reports: malaise, weakness HEENT: Reports: no symptoms Cardiovascular: Reports: no symptoms Respiratory: Reports: no symptoms Gastrointestinal/Abdominal: Reports: diarrhea Genitourinary: Reports: no symptoms Neurologic/Psychiatric: Reports: pre-existing deficit Endocrine: Reports: no symptoms Hematologic/Lymphatic: Reports: no symptoms Allergies: Coded Allergies: No Known Allergies (Unverified , 01/18/18) All Systems: reviewed and negative except above Subjective no events. still with diarrhea but less. on ivf. am labs pending still. Objective Last 24 Hour Vital Signs Date Time Temp Pulse Resp B/P (MAP) Pulse Ox O2 Delivery O2 Flow Rate FiO2 01/29/18 04:00 96.8 108 18 131/69 98 96.8 01/29/18 00:00 97.0 80 18 117/66 98 97.0 01/28/18 20:00 97.5 92 19 117/66 98 97.5 01/28/18 16:00 97.7 77 18 119/74 94 Room Air 97.7 01/28/18 11:45 97.6 66 16 130/77 97 Room Air 97.6 01/28/18 08:00 98.5 82 16 122/74 98 Room Air 98.5 Intake and Output 01/28/18 01/29/18 19:00 07:00 Intake Total 420 ml 240 ml Output Total 3 ml Balance 417 ml 240 ml Intake Oral 300 ml 240 ml Other 120 ml Output Urine Total 3 ml # Voids 2 # Bowel Movements 3 2 Laboratory Tests 01/29/18 06:45: White Blood Count [Pending], Red Blood Count [Pending], Hemoglobin [Pending], Hematocrit [Pending], Mean Corpuscular Volume [Pending], Mean Corpuscular Hemoglobin [Pending], Mean Corpuscular Hemoglobin Concent [Pending], Red Cell Distribution Width [Pending], Platelet Count [Pending], Mean Platelet Volume [ Pending], Neutrophils (%) (Auto) [Pending], Lymphocytes (%) (Auto) [Pending], Monocytes (%) (Auto) [Pending], Eosinophils (%) (Auto) [Pending], Basophils (%) (Auto) [Pending], Sodium Level [Pending], Potassium Level [Pending], Chloride Level [Pending], Carbon Dioxide Level [Pending], Blood Urea Nitrogen [Pending], Creatinine [Pending], Estimat Glomerular Filtration Rate [Pending], Glucose Level [Pending], Calcium Level [Pending], Total Bilirubin [Pending], Aspartate Amino Transf (AST/SGOT) [Pending], Alanine Aminotransferase (ALT/SGPT) [Pending] , Alkaline Phosphatase [Pending], Total Protein [Pending], Albumin [Pending], Globulin [Pending] Height (Feet): 5 Height (Inches): 2.00 Weight (Pounds): 143 Objective General Appearance: WD/WN, alert Neck: supple Cardiovascular: regular rhythm Respiratory/Chest: chest wall non-tender, lungs clear, normal breath sounds Abdomen: normal bowel sounds, non tender, soft, no organomegaly Edema: no edema noted Arm (L), no edema noted Arm (R), no edema noted Leg (L), no edema noted Leg (R), no edema noted Pedal (L), no edema noted Pedal (R), no edema noted Generalized JASS ALLEN January 29, 2018 07:41
[2018-01-29 07:42] LABS: BASOPHILS % (AUTO) 1.5 % (0.0-2.0); EOSINOPHILS % (AUTO) 1.5 % (0.0-3.0); HEMATOCRIT 35.8 % (37.0-47.0); HEMOGLOBIN 12.1 G/DL (12.0-16.0); LYMPHOCYTES % (AUTO) 26.3 % (20.0-45.0); MEAN CORPUSCULAR VOLUME 94 FL (80-99); MONOCYTES % (AUTO) 10.3 % (1.0-10.0); NEUTROPHILS % (AUTO) 60.4 % (45.0-75.0); PLATELET COUNT 686 K/UL (150-450); RED BLOOD COUNT 3.83 M/UL (4.20-5.40); RED CELL DISTRIBUTION WIDTH 12.1 % (11.6-14.8); WHITE BLOOD COUNT 5.6 K/UL (4.8-10.8)
[2018-01-29 08:00] VITALS: BP 126/67
[2018-01-29 08:09] LABS: ALANINE AMINOTRANSFERASE 37 U/L (12-78); ALBUMIN 1.3 G/DL (3.4-5.0); ALBUMIN/GLOBULIN RATIO 0.4 (1.0-2.7); ALKALINE PHOSPHATASE 141 U/L (46-116); ANION GAP 7 mmol/L (5-15); ASPARTATE AMINO TRANSFERASE 52 U/L (15-37); BILIRUBIN,TOTAL 0.2 MG/DL (0.2-1.0); BLOOD UREA NITROGEN 9 mg/dL (7-18); CALCIUM 7.4 MG/DL (8.5-10.1); CARBON DIOXIDE 21 MMOL/L (21-32); CHLORIDE 104 MMOL/L (98-107); CREATININE 0.5 MG/DL (0.55-1.30); POTASSIUM 4.5 MMOL/L (3.5-5.1); SODIUM 132 MMOL/L (136-145)
[2018-01-29] MEDS: Lactobacillus-GG tablet ORAL SCH ×3 (08:39→17:03)
[2018-01-29] MEDS: Vancomycin oral 125mg/2.5ml ORAL SCH ×4 (09:55→21:24)
--- NOTE | 2018-01-29 11:09 | Infectious Diseases Prog Note ---
Assessment/Plan Assessment/Plan antibiotics : fidoxamicin, po vancomycin A 1. c.diff colitis diarrhea improving patient was not compliant with some doses of antibiotics 2. leucocytosis resolved 3. hyponatremia improving 4. dementia P 1. continue vancomycin po 3 more days 2. continue fidoxamicin 3 more days 3. will follow up clinically 4. d/w Dr Peralta Subjective Constitutional: Denies: fever, chills Respiratory: Denies: shortness of breath, dry cough Gastrointestinal/Abdominal: Reports: diarrhea - decreased; Denies: nausea, vomiting Musculoskeletal: Denies: pain Allergies: Coded Allergies: No Known Allergies (Unverified , 01/18/18) Objective Vital Signs Last 24 Hour Vital Signs Date Time Temp Pulse Resp B/P (MAP) Pulse Ox O2 Delivery O2 Flow Rate FiO2 01/29/18 08:00 97.7 79 16 126/67 94 Room Air 97.7 01/29/18 04:00 96.8 108 18 131/69 98 96.8 01/29/18 00:00 97.0 80 18 117/66 98 97.0 01/28/18 20:00 97.5 92 19 117/66 98 97.5 01/28/18 16:00 97.7 77 18 119/74 94 Room Air 97.7 01/28/18 11:45 97.6 66 16 130/77 97 Room Air 97.6 Height (Feet): 5 Height (Inches): 2.00 Weight (Pounds): 143 Respiratory/Chest: lungs clear Cardiovascular: normal rate, regular rhythm, no gallop/murmur Abdomen: soft, non tender, distended Extremities: no edema Laboratory Tests Test 01/29/18 06:45 White Blood Count 5.6 K/UL (4.8-10.8) Red Blood Count 3.83 M/UL (4.20-5.40) L Hemoglobin 12.1 G/DL (12.0-16.0) Hematocrit 35.8 % (37.0-47.0) L Mean Corpuscular Volume 94 FL (80-99) Mean Corpuscular Hemoglobin 31.6 PG (27.0-31.0) H Mean Corpuscular Hemoglobin Concent 33.8 G/DL (32.0-36.0) Red Cell Distribution Width 12.1 % (11.6-14.8) Platelet Count 686 K/UL (150-450) H Mean Platelet Volume 5.3 FL (6.5-10.1) L Neutrophils (%) (Auto) 60.4 % (45.0-75.0) Lymphocytes (%) (Auto) 26.3 % (20.0-45.0) Monocytes (%) (Auto) 10.3 % (1.0-10.0) H Eosinophils (%) (Auto) 1.5 % (0.0-3.0) Basophils (%) (Auto) 1.5 % (0.0-2.0) Sodium Level 132 MMOL/L (136-145) L Potassium Level 4.5 MMOL/L (3.5-5.1) Chloride Level 104 MMOL/L (98-107) Carbon Dioxide Level 21 MMOL/L (21-32) Anion Gap 7 mmol/L (5-15) Blood Urea Nitrogen 9 mg/dL (7-18) Creatinine 0.5 MG/DL (0.55-1.30) L Estimat Glomerular Filtration Rate mL/min (>60) Glucose Level 103 MG/DL (74-106) Calcium Level 7.4 MG/DL (8.5-10.1) L Total Bilirubin 0.2 MG/DL (0.2-1.0) Aspartate Amino Transf (AST/SGOT) 52 U/L (15-37) H Alanine Aminotransferase (ALT/SGPT) 37 U/L (12-78) Alkaline Phosphatase 141 U/L (46-116) H Total Protein 4.6 G/DL (6.4-8.2) L Albumin 1.3 G/DL (3.4-5.0) L Globulin 3.3 g/dL Albumin/Globulin Ratio 0.4 (1.0-2.7) L Current Medications Medications (Trade) Dose Ordered Sig/Stephanie Route PRN Reason Start Time Stop Time Status Last Admin Dose Admin Acetaminophen (Tylenol) 650 mg Q4H PRN ORAL Mild Pain/Temp > 100.5 01/18/18 18:00 02/17/18 17:59 01/22/18 20:44 Fidaxomicin (Dificid) 200 mg Q12HR ORAL 01/25/18 09:00 02/01/18 08:59 01/29/18 09:41 Lactobacillus Acidophilus (Culturelle) 1 tab THREE TIMES A DAY ORAL 01/19/18 13:00 02/18/18 12:59 01/29/18 08:39 Levothyroxine Sodium (Synthroid) 50 mcg DAILY@0630 ORAL 01/22/18 06:30 02/21/18 06:29 01/26/18 05:43 Olanzapine (ZyPREXA) 5 mg BEDTIME ORAL 01/20/18 21:00 02/19/18 20:59 01/28/18 20:37 Ondansetron HCl (Zofran) 4 mg Q6H PRN IVP Nausea & Vomiting 01/18/18 18:00 02/17/18 17:59 01/20/18 04:31 Vancomycin HCl (Vancomycin) 500 mg FOUR TIMES A DAY ORAL 01/26/18 13:00 02/02/18 12:59 01/29/18 09:55 TIARRA AREVALO January 29, 2018 11:09
[2018-01-29 12:00] VITALS: BP 119/73
--- NOTE | 2018-01-29 12:33 | General Progress Note ---
Assessment/Plan Status: stable Assessment/Plan encephalopathy psychosis Lacks capacity -zyprexa 10mg qhs -provided ro -the pt may not refuse meds Subjective Date patient seen: January 29, 2018 Neurologic/Psychiatric: Reports: depressed, emotional problems Allergies: Coded Allergies: No Known Allergies (Unverified , 01/18/18) Subjective the pt took meds, confused more disorganized Objective Last 24 Hour Vital Signs Date Time Temp Pulse Resp B/P (MAP) Pulse Ox O2 Delivery O2 Flow Rate FiO2 01/29/18 12:00 97.2 82 16 119/73 92 97.2 01/29/18 08:00 97.7 79 16 126/67 94 Room Air 97.7 01/29/18 04:00 96.8 108 18 131/69 98 96.8 01/29/18 00:00 97.0 80 18 117/66 98 97.0 01/28/18 20:00 97.5 92 19 117/66 98 97.5 01/28/18 16:00 97.7 77 18 119/74 94 Room Air 97.7 Intake and Output 01/28/18 01/29/18 19:00 07:00 Intake Total 420 ml 240 ml Output Total 3 ml Balance 417 ml 240 ml Intake Oral 300 ml 240 ml Other 120 ml Output Urine Total 3 ml # Voids 2 # Bowel Movements 3 2 Laboratory Tests 01/29/18 06:45: White Blood Count 5.6, Red Blood Count 3.83L, Hemoglobin 12.1, Hematocrit 35.8L , Mean Corpuscular Volume 94, Mean Corpuscular Hemoglobin 31.6H, Mean Corpuscular Hemoglobin Concent 33.8, Red Cell Distribution Width 12.1, Platelet Count 686H, Mean Platelet Volume 5.3L, Neutrophils (%) (Auto) 60.4, Lymphocytes (%) (Auto) 26.3, Monocytes (%) (Auto) 10.3H, Eosinophils (%) (Auto) 1.5, Basophils (%) (Auto) 1.5, Sodium Level 132L, Potassium Level 4.5, Chloride Level 104, Carbon Dioxide Level 21, Anion Gap 7, Blood Urea Nitrogen 9, Creatinine 0.5L, Estimat Glomerular Filtration Rate , Glucose Level 103, Calcium Level 7.4L, Total Bilirubin 0.2, Aspartate Amino Transf (AST/SGOT) 52H, Alanine Aminotransferase (ALT/SGPT) 37, Alkaline Phosphatase 141H, Total Protein 4.6L, Albumin 1.3L, Globulin 3.3, Albumin/Globulin Ratio 0.4L Height (Feet): 5 Height (Inches): 2.00 Weight (Pounds): 143 General Appearance: WD/WN, no apparent distress, alert, confused Orestes Clemons M.D. January 29, 2018 12:33
--- NOTE | 2018-01-29 12:59 | Diagnostic Imaging Report ---
Indication:Abdominal pain elevated liver function tests Technique: Grayscale and duplex Doppler imaging of the abdomen performed. Comparison: None Findings: The liver, demonstrated part of the pancreas, gallbladder, aorta and IVC, both kidneys, spleen appear unremarkable. There is no biliary ductal dilatation identified. Doppler evaluation of the main portal vein shows patency. There is mild ascites. Bilateral pleural effusions noted. No hydronephrosis seen. Impression: Bilateral pleural effusions. Mild ascites
[2018-01-29 16:08] VITALS: BP 125/72
[2018-01-29 20:00] VITALS: BP 125/74
[2018-01-29] MEDS: OLANZapine 10mg tab ORAL SCH (21:10)
--- NOTE | 2018-01-29 23:20 | General Progress Note ---
Assessment/Plan Assessment/Plan Assessment - C Diff colitis - WBC now normal - malnutrition, low albumin - abnormal LFT - u/s negative Recommendations - abx per ID - Questran - probiotics - H2B - po diet Subjective Allergies: Coded Allergies: No Known Allergies (Unverified , 01/18/18) Subjective denies complaints minimally interactive d/w ID Objective Last 24 Hour Vital Signs Date Time Temp Pulse Resp B/P (MAP) Pulse Ox O2 Delivery O2 Flow Rate FiO2 01/29/18 20:00 97.5 96 20 125/74 97 97.5 01/29/18 16:08 97.3 79 19 125/72 96 Room Air 97.3 01/29/18 12:00 97.2 82 16 119/73 92 97.2 01/29/18 08:00 97.7 79 16 126/67 94 Room Air 97.7 01/29/18 04:00 96.8 108 18 131/69 98 96.8 01/29/18 00:00 97.0 80 18 117/66 98 97.0 Intake and Output 01/28/18 01/29/18 19:00 07:00 Intake Total 420 ml 240 ml Output Total 3 ml Balance 417 ml 240 ml Intake Oral 300 ml 240 ml Other 120 ml Output Urine Total 3 ml # Voids 2 # Bowel Movements 3 2 Laboratory Tests 01/29/18 06:45: White Blood Count 5.6, Red Blood Count 3.83L, Hemoglobin 12.1, Hematocrit 35.8L , Mean Corpuscular Volume 94, Mean Corpuscular Hemoglobin 31.6H, Mean Corpuscular Hemoglobin Concent 33.8, Red Cell Distribution Width 12.1, Platelet Count 686H, Mean Platelet Volume 5.3L, Neutrophils (%) (Auto) 60.4, Lymphocytes (%) (Auto) 26.3, Monocytes (%) (Auto) 10.3H, Eosinophils (%) (Auto) 1.5, Basophils (%) (Auto) 1.5, Sodium Level 132L, Potassium Level 4.5, Chloride Level 104, Carbon Dioxide Level 21, Anion Gap 7, Blood Urea Nitrogen 9, Creatinine 0.5L, Estimat Glomerular Filtration Rate , Glucose Level 103, Calcium Level 7.4L, Total Bilirubin 0.2, Aspartate Amino Transf (AST/SGOT) 52H, Alanine Aminotransferase (ALT/SGPT) 37, Alkaline Phosphatase 141H, Total Protein 4.6L, Albumin 1.3L, Globulin 3.3, Albumin/Globulin Ratio 0.4L Height (Feet): 5 Height (Inches): 2.00 Weight (Pounds): 143 Objective Thin pale woman NCAT supple CTA RRR Soft NT, less distended no edema Jorge Peralta MD January 29, 2018 23:20
[2018-01-30] VITALS: BP 131/82
[2018-01-30 04:00] VITALS: BP 133/87
[2018-01-30 08:00] VITALS: BP 129/77
[2018-01-30] MEDS: Vancomycin oral 125mg/2.5ml ORAL SCH ×4 (09:49→20:22)
[2018-01-30] MEDS: Lactobacillus-GG tablet ORAL SCH ×3 (09:49→17:58)
--- NOTE | 2018-01-30 11:38 | General Progress Note ---
Assessment/Plan Problem List: (1) PAD (peripheral artery disease) ICD Codes: I73.9 - Peripheral vascular disease, unspecified SNOMED: 047858522, 341386920 (2) Colitis ICD Codes: K52.9 - Noninfective gastroenteritis and colitis, unspecified SNOMED: 09543642 (3) Diarrhea ICD Codes: R19.7 - Diarrhea, unspecified SNOMED: 37113777 (4) Hip pain ICD Codes: M25.559 - Pain in unspecified hip SNOMED: 76712010 Status: stable Assessment/Plan dificid started by ID monitor labs ivf zofran for nausea pt/ot needed at snf dc planning snf Subjective ROS Limited/Unobtainable: Yes Constitutional: Reports: malaise, weakness HEENT: Reports: no symptoms Cardiovascular: Reports: no symptoms Respiratory: Reports: no symptoms Gastrointestinal/Abdominal: Reports: diarrhea Genitourinary: Reports: no symptoms Neurologic/Psychiatric: Reports: pre-existing deficit Endocrine: Reports: no symptoms Hematologic/Lymphatic: Reports: no symptoms Allergies: Coded Allergies: No Known Allergies (Unverified , 01/18/18) All Systems: reviewed and negative except above Subjective no events. still with diarrhea but less. compliant with meds. able to eat on her own Objective Last 24 Hour Vital Signs Date Time Temp Pulse Resp B/P (MAP) Pulse Ox O2 Delivery O2 Flow Rate FiO2 01/30/18 08:00 97.0 129/77 97.0 01/30/18 04:00 97.2 91 20 133/87 98 97.2 01/30/18 00:00 97.3 72 20 131/82 100 97.3 01/29/18 20:00 97.5 96 20 125/74 97 97.5 01/29/18 16:08 97.3 79 19 125/72 96 Room Air 97.3 01/29/18 12:00 97.2 82 16 119/73 92 97.2 Intake and Output 01/29/18 01/30/18 19:00 07:00 Intake Total 480 ml 730 ml Balance 480 ml 730 ml Intake Oral 480 ml 480 ml Tube Feeding 250 ml # Voids 4 # Bowel Movements 4 2 Height (Feet): 5 Height (Inches): 2.00 Weight (Pounds): 143 Objective General Appearance: WD/WN, alert Neck: supple Cardiovascular: regular rhythm Respiratory/Chest: chest wall non-tender, lungs clear, normal breath sounds Abdomen: normal bowel sounds, non tender, soft, no organomegaly Edema: no edema noted Arm (L), no edema noted Arm (R), no edema noted Leg (L), no edema noted Leg (R), no edema noted Pedal (L), no edema noted Pedal (R), no edema noted Generalized JASS ALLEN January 30, 2018 11:38
[2018-01-30] MEDS ORDERED: CULTURELLE1 EACH ORAL (11:44)
[2018-01-30] MEDS ORDERED: DIFICID200 MG ORAL (11:44)
[2018-01-30] MEDS ORDERED: VANCOMYCIN250 MG/5 M ORAL (11:44)
[2018-01-30] MEDS ORDERED: ZYPREXA10 MG ORAL (11:44)
[2018-01-30] MEDS ORDERED: SYNTHROID50 MCG ORAL (11:44)
[2018-01-30 12:00] VITALS: BP 133/64
--- NOTE | 2018-01-30 12:57 | Infectious Diseases Prog Note ---
Assessment/Plan Assessment/Plan A; Severe C. difficile colitis Leukocytosis resolved Decreased albumin Hyponatremia Dementia PVD P: continue Dificid X 2 days continue PO Vancomycin X 2 days Subjective ROS Limited/Unobtainable: Yes Gastrointestinal/Abdominal: Reports: diarrhea Musculoskeletal: Reports: no symptoms Allergies: Coded Allergies: No Known Allergies (Unverified , 01/18/18) Objective Vital Signs Last 24 Hour Vital Signs Date Time Temp Pulse Resp B/P (MAP) Pulse Ox O2 Delivery O2 Flow Rate FiO2 01/30/18 08:00 97.0 129/77 97.0 01/30/18 04:00 97.2 91 20 133/87 98 97.2 01/30/18 00:00 97.3 72 20 131/82 100 97.3 01/29/18 20:00 97.5 96 20 125/74 97 97.5 01/29/18 16:08 97.3 79 19 125/72 96 Room Air 97.3 Height (Feet): 5 Height (Inches): 2.00 Weight (Pounds): 143 HEENT: other - poor dentition Respiratory/Chest: lungs clear Cardiovascular: normal rate Abdomen: soft, non tender Extremities: no edema Neurologic/Psychiatric: alert, responsive Current Medications Medications (Trade) Dose Ordered Sig/Stephanie Route PRN Reason Start Time Stop Time Status Last Admin Dose Admin Acetaminophen (Tylenol) 650 mg Q4H PRN ORAL Mild Pain/Temp > 100.5 01/18/18 18:00 02/17/18 17:59 01/22/18 20:44 Fidaxomicin (Dificid) 200 mg Q12HR ORAL 01/25/18 09:00 02/01/18 08:59 01/30/18 09:48 Lactobacillus Acidophilus (Culturelle) 1 tab THREE TIMES A DAY ORAL 01/19/18 13:00 02/18/18 12:59 01/30/18 12:28 Levothyroxine Sodium (Synthroid) 50 mcg DAILY@0630 ORAL 01/22/18 06:30 02/21/18 06:29 01/30/18 07:18 Olanzapine (ZyPREXA) 10 mg BEDTIME ORAL 01/29/18 21:00 02/28/18 20:59 01/29/18 21:10 Ondansetron HCl (Zofran) 4 mg Q6H PRN IVP Nausea & Vomiting 01/18/18 18:00 02/17/18 17:59 01/20/18 04:31 Vancomycin HCl (Vancomycin) 500 mg FOUR TIMES A DAY ORAL 01/26/18 13:00 02/02/18 12:59 01/30/18 12:29 KRISTIE ALVARENGA January 30, 2018 12:57
[2018-01-30 16:00] VITALS: BP 134/66
[2018-01-30 20:00] VITALS: BP 133/75
[2018-01-30] MEDS: OLANZapine 10mg tab ORAL SCH ×2 (20:22→21:00)
--- NOTE | 2018-01-30 23:30 | General Progress Note ---
Assessment/Plan Assessment/Plan Assessment - C Diff colitis - WBC now normal - malnutrition, low albumin - abnormal LFT - u/s negative Recommendations - abx per ID - Questran - probiotics - H2B - po diet Subjective Allergies: Coded Allergies: No Known Allergies (Unverified , 01/18/18) Subjective denies complaints more awake participates in PT Objective Last 24 Hour Vital Signs Date Time Temp Pulse Resp B/P (MAP) Pulse Ox O2 Delivery O2 Flow Rate FiO2 01/30/18 20:00 97.3 79 20 133/75 100 97.3 01/30/18 16:00 97.2 91 18 134/66 96 Room Air 97.2 01/30/18 12:00 97.3 72 18 133/64 97.3 01/30/18 08:00 97.0 129/77 97.0 01/30/18 04:00 97.2 91 20 133/87 98 97.2 01/30/18 00:00 97.3 72 20 131/82 100 97.3 Intake and Output 01/29/18 01/30/18 19:00 07:00 Intake Total 480 ml 730 ml Balance 480 ml 730 ml Intake Oral 480 ml 480 ml Tube Feeding 250 ml # Voids 4 # Bowel Movements 4 2 Height (Feet): 5 Height (Inches): 2.00 Weight (Pounds): 143 Objective Thin pale woman NCAT supple CTA RRR Soft NT, less distended no edema Jorge Peralta MD January 30, 2018 23:30
[2018-01-31] VITALS: BP 130/68
[2018-01-31 04:00] VITALS: BP 132/66
[2018-01-31 08:00] VITALS: BP 130/72
--- NOTE | 2018-01-31 08:18 | General Progress Note ---
Assessment/Plan Problem List: (1) PAD (peripheral artery disease) ICD Codes: I73.9 - Peripheral vascular disease, unspecified SNOMED: 399172544, 320692858 (2) Colitis ICD Codes: K52.9 - Noninfective gastroenteritis and colitis, unspecified SNOMED: 02261137 (3) Diarrhea ICD Codes: R19.7 - Diarrhea, unspecified SNOMED: 61814981 (4) Hip pain ICD Codes: M25.559 - Pain in unspecified hip SNOMED: 41514786 Status: stable, progressing Assessment/Plan dificid started by ID monitor labs ivf zofran for nausea pt/ot needed at snf dc planning snf Subjective ROS Limited/Unobtainable: Yes Constitutional: Reports: malaise, weakness HEENT: Reports: no symptoms Cardiovascular: Reports: no symptoms Respiratory: Reports: no symptoms Gastrointestinal/Abdominal: Reports: diarrhea Genitourinary: Reports: no symptoms Neurologic/Psychiatric: Reports: no symptoms Endocrine: Reports: no symptoms Hematologic/Lymphatic: Reports: no symptoms Allergies: Coded Allergies: No Known Allergies (Unverified , 01/18/18) All Systems: reviewed and negative except above Subjective no events. still with diarrhea but less. compliant with meds. able to eat on her own snf not willing accept due cost of difcid. only 4 more doses left. Objective Last 24 Hour Vital Signs Date Time Temp Pulse Resp B/P (MAP) Pulse Ox O2 Delivery O2 Flow Rate FiO2 01/31/18 04:00 97.4 85 20 132/66 97 97.4 01/31/18 00:00 97.2 72 20 130/68 100 97.2 01/30/18 20:00 97.3 79 20 133/75 100 97.3 01/30/18 16:00 97.2 91 18 134/66 96 Room Air 97.2 01/30/18 12:00 97.3 72 18 133/64 97.3 Intake and Output 01/30/18 01/31/18 18:59 06:59 Intake Total 140 ml 200 ml Balance 140 ml 200 ml Intake Oral 140 ml 200 ml # Voids 4 4 # Bowel Movements 3 2 Height (Feet): 5 Height (Inches): 2.00 Weight (Pounds): 143 Objective General Appearance: WD/WN, alert Neck: supple Cardiovascular: regular rhythm Respiratory/Chest: chest wall non-tender, lungs clear, normal breath sounds Abdomen: normal bowel sounds, non tender, soft, no organomegaly Edema: no edema noted Arm (L), no edema noted Arm (R), no edema noted Leg (L), no edema noted Leg (R), no edema noted Pedal (L), no edema noted Pedal (R), no edema noted Generalized JASS ALLEN January 31, 2018 08:18
[2018-01-31 10:04] LABS: BASOPHILS % (AUTO) 2.1 % (0.0-2.0); EOSINOPHILS % (AUTO) 1.1 % (0.0-3.0); HEMATOCRIT 38.4 % (37.0-47.0); HEMOGLOBIN 12.6 G/DL (12.0-16.0); LYMPHOCYTES % (AUTO) 27.2 % (20.0-45.0); MEAN CORPUSCULAR VOLUME 95 FL (80-99); MONOCYTES % (AUTO) 8.7 % (1.0-10.0); NEUTROPHILS % (AUTO) 60.8 % (45.0-75.0); PLATELET COUNT 691 K/UL (150-450); RED BLOOD COUNT 4.04 M/UL (4.20-5.40); RED CELL DISTRIBUTION WIDTH 12.3 % (11.6-14.8); WHITE BLOOD COUNT 5.1 K/UL (4.8-10.8)
[2018-01-31] MEDS: Lactobacillus-GG tablet ORAL SCH ×3 (10:05→18:13)
[2018-01-31] MEDS: Vancomycin oral 125mg/2.5ml ORAL SCH ×4 (10:05→21:05)
--- NOTE | 2018-01-31 11:13 | Infectious Diseases Prog Note ---
Assessment/Plan Assessment/Plan antibiotics : fidoxamicin, po vancomycin A 1. c.diff colitis diarrhea improving patient not compliant with some doses of antibiotics 2. leucocytosis resolved 3. hyponatremia improving 4. dementia P 1. continue vancomycin po 2. continue fidoxamicin 1 more day 3. will follow up clinically Subjective Constitutional: Denies: fever, chills Respiratory: Denies: shortness of breath, dry cough Gastrointestinal/Abdominal: Reports: diarrhea - decreasing; Denies: nausea, vomiting Allergies: Coded Allergies: No Known Allergies (Unverified , 01/18/18) Objective Vital Signs Last 24 Hour Vital Signs Date Time Temp Pulse Resp B/P (MAP) Pulse Ox O2 Delivery O2 Flow Rate FiO2 01/31/18 04:00 97.4 85 20 132/66 97 97.4 01/31/18 00:00 97.2 72 20 130/68 100 97.2 01/30/18 20:00 97.3 79 20 133/75 100 97.3 01/30/18 16:00 97.2 91 18 134/66 96 Room Air 97.2 01/30/18 12:00 97.3 72 18 133/64 97.3 Height (Feet): 5 Height (Inches): 2.00 Weight (Pounds): 143 Respiratory/Chest: lungs clear Cardiovascular: normal rate, regular rhythm, no gallop/murmur Abdomen: soft, non tender, distended Extremities: no edema Laboratory Tests Test 01/31/18 03:50 01/31/18 09:20 Stool Occult Blood Pending White Blood Count 5.1 K/UL (4.8-10.8) Red Blood Count 4.04 M/UL (4.20-5.40) L Hemoglobin 12.6 G/DL (12.0-16.0) Hematocrit 38.4 % (37.0-47.0) Mean Corpuscular Volume 95 FL (80-99) Mean Corpuscular Hemoglobin 31.3 PG (27.0-31.0) H Mean Corpuscular Hemoglobin Concent 32.9 G/DL (32.0-36.0) Red Cell Distribution Width 12.3 % (11.6-14.8) Platelet Count 691 K/UL (150-450) H Mean Platelet Volume 4.9 FL (6.5-10.1) L Neutrophils (%) (Auto) 60.8 % (45.0-75.0) Lymphocytes (%) (Auto) 27.2 % (20.0-45.0) Monocytes (%) (Auto) 8.7 % (1.0-10.0) Eosinophils (%) (Auto) 1.1 % (0.0-3.0) Basophils (%) (Auto) 2.1 % (0.0-2.0) H Current Medications Medications (Trade) Dose Ordered Sig/Stephanie Route PRN Reason Start Time Stop Time Status Last Admin Dose Admin Acetaminophen (Tylenol) 650 mg Q4H PRN ORAL Mild Pain/Temp > 100.5 01/18/18 18:00 02/17/18 17:59 01/22/18 20:44 Fidaxomicin (Dificid) 200 mg Q12HR ORAL 01/25/18 09:00 02/01/18 08:59 01/31/18 10:04 Lactobacillus Acidophilus (Culturelle) 1 tab THREE TIMES A DAY ORAL 01/19/18 13:00 02/18/18 12:59 01/31/18 10:05 Levothyroxine Sodium (Synthroid) 50 mcg DAILY@0630 ORAL 01/22/18 06:30 02/21/18 06:29 01/31/18 05:41 Olanzapine (ZyPREXA) 10 mg BEDTIME ORAL 01/29/18 21:00 02/28/18 20:59 01/29/18 21:10 Ondansetron HCl (Zofran) 4 mg Q6H PRN IVP Nausea & Vomiting 01/18/18 18:00 02/17/18 17:59 01/20/18 04:31 Vancomycin HCl (Vancomycin) 500 mg FOUR TIMES A DAY ORAL 01/26/18 13:00 02/02/18 12:59 01/31/18 10:05 TIARRA AREVALO January 31, 2018 11:13
[2018-01-31 12:00] VITALS: BP 130/61
[2018-01-31 16:00] VITALS: BP 107/64
[2018-01-31 20:00] VITALS: BP 128/63
[2018-01-31] MEDS: OLANZapine 10mg tab ORAL SCH (21:05)
--- NOTE | 2018-01-31 22:38 | Psych Consult Progress Note ---
Psych Consult Progress Note Consult 01/30/18 encephalopathy psychosis Lacks capacity -zyprexa 10mg qhs -provided ro -the pt may not refuse meds Vital Signs Last 24 Hour Vital Signs Date Time Temp Pulse Resp B/P (MAP) Pulse Ox O2 Delivery O2 Flow Rate FiO2 01/31/18 20:00 97.5 81 18 128/63 100 97.5 01/31/18 16:00 97.3 72 20 107/64 96 Room Air 97.3 01/31/18 12:00 97.3 78 20 130/61 100 Room Air 97.3 01/31/18 08:00 97.2 75 18 130/72 95 Room Air 97.2 01/31/18 04:00 97.4 85 20 132/66 97 97.4 01/31/18 00:00 97.2 72 20 130/68 100 97.2 Labs Laboratory Tests Test 01/31/18 03:50 01/31/18 09:20 Stool Occult Blood Positive (NEGATIVE) White Blood Count 5.1 K/UL (4.8-10.8) Red Blood Count 4.04 M/UL (4.20-5.40) L Hemoglobin 12.6 G/DL (12.0-16.0) Hematocrit 38.4 % (37.0-47.0) Mean Corpuscular Volume 95 FL (80-99) Mean Corpuscular Hemoglobin 31.3 PG (27.0-31.0) H Mean Corpuscular Hemoglobin Concent 32.9 G/DL (32.0-36.0) Red Cell Distribution Width 12.3 % (11.6-14.8) Platelet Count 691 K/UL (150-450) H Mean Platelet Volume 4.9 FL (6.5-10.1) L Neutrophils (%) (Auto) 60.8 % (45.0-75.0) Lymphocytes (%) (Auto) 27.2 % (20.0-45.0) Monocytes (%) (Auto) 8.7 % (1.0-10.0) Eosinophils (%) (Auto) 1.1 % (0.0-3.0) Basophils (%) (Auto) 2.1 % (0.0-2.0) H Medications Current Medications Medications (Trade) Dose Ordered Sig/Stephanie Route PRN Reason Start Time Stop Time Status Last Admin Dose Admin Acetaminophen (Tylenol) 650 mg Q4H PRN ORAL Mild Pain/Temp > 100.5 01/18/18 18:00 02/17/18 17:59 01/22/18 20:44 Fidaxomicin (Dificid) 200 mg Q12HR ORAL 01/25/18 09:00 02/01/18 23:00 01/31/18 21:05 Lactobacillus Acidophilus (Culturelle) 1 tab THREE TIMES A DAY ORAL 01/19/18 13:00 02/18/18 12:59 01/31/18 18:13 Levothyroxine Sodium (Synthroid) 50 mcg DAILY@0630 ORAL 01/22/18 06:30 02/21/18 06:29 01/31/18 05:41 Olanzapine (ZyPREXA) 10 mg BEDTIME ORAL 01/29/18 21:00 02/28/18 20:59 01/31/18 21:05 Ondansetron HCl (Zofran) 4 mg Q6H PRN IVP Nausea & Vomiting 01/18/18 18:00 02/17/18 17:59 01/20/18 04:31 Vancomycin HCl (Vancomycin) 500 mg FOUR TIMES A DAY ORAL 01/31/18 13:00 02/07/18 12:59 01/31/18 21:05 Orestes Clemons M.D. January 31, 2018 22:38
--- NOTE | 2018-01-31 22:38 | General Progress Note ---
Assessment/Plan Status: stable Assessment/Plan encephalopathy psychosis Lacks capacity -zyprexa 10mg qhs -provided ro -the pt may not refuse meds Subjective Date patient seen: January 31, 2018 Neurologic/Psychiatric: Reports: anxiety, depressed Allergies: Coded Allergies: No Known Allergies (Unverified , 01/18/18) Subjective the pt took meds in apple sauce, confused more disorganized Objective Last 24 Hour Vital Signs Date Time Temp Pulse Resp B/P (MAP) Pulse Ox O2 Delivery O2 Flow Rate FiO2 01/31/18 20:00 97.5 81 18 128/63 100 97.5 01/31/18 16:00 97.3 72 20 107/64 96 Room Air 97.3 01/31/18 12:00 97.3 78 20 130/61 100 Room Air 97.3 01/31/18 08:00 97.2 75 18 130/72 95 Room Air 97.2 01/31/18 04:00 97.4 85 20 132/66 97 97.4 01/31/18 00:00 97.2 72 20 130/68 100 97.2 Intake and Output 01/30/18 01/31/18 19:00 07:00 Intake Total 140 ml 200 ml Balance 140 ml 200 ml Intake Oral 140 ml 200 ml # Voids 4 4 # Bowel Movements 3 2 Laboratory Tests 01/31/18 03:50: Stool Occult Blood Positive 01/31/18 09:20: White Blood Count 5.1, Red Blood Count 4.04L, Hemoglobin 12.6, Hematocrit 38.4, Mean Corpuscular Volume 95, Mean Corpuscular Hemoglobin 31.3H, Mean Corpuscular Hemoglobin Concent 32.9, Red Cell Distribution Width 12.3, Platelet Count 691H, Mean Platelet Volume 4.9L, Neutrophils (%) (Auto) 60.8, Lymphocytes (%) (Auto) 27.2, Monocytes (%) (Auto) 8.7, Eosinophils (%) (Auto) 1.1, Basophils (%) (Auto ) 2.1H Height (Feet): 5 Height (Inches): 2.00 Weight (Pounds): 143 General Appearance: no apparent distress, alert, confused Orestes Clemons M.D. January 31, 2018 22:38
--- NOTE | 2018-01-31 23:09 | General Progress Note ---
Assessment/Plan Assessment/Plan Assessment - C Diff colitis - WBC now normal - malnutrition, low albumin - abnormal LFT - u/s negative Recommendations - abx per ID - Questran - probiotics - H2B - po diet Subjective Allergies: Coded Allergies: No Known Allergies (Unverified , 01/18/18) Subjective denies complaints more awake ate well Objective Last 24 Hour Vital Signs Date Time Temp Pulse Resp B/P (MAP) Pulse Ox O2 Delivery O2 Flow Rate FiO2 01/31/18 20:00 97.5 81 18 128/63 100 97.5 01/31/18 16:00 97.3 72 20 107/64 96 Room Air 97.3 01/31/18 12:00 97.3 78 20 130/61 100 Room Air 97.3 01/31/18 08:00 97.2 75 18 130/72 95 Room Air 97.2 01/31/18 04:00 97.4 85 20 132/66 97 97.4 01/31/18 00:00 97.2 72 20 130/68 100 97.2 Intake and Output 01/30/18 01/31/18 19:00 07:00 Intake Total 140 ml 200 ml Balance 140 ml 200 ml Intake Oral 140 ml 200 ml # Voids 4 4 # Bowel Movements 3 2 Laboratory Tests 01/31/18 03:50: Stool Occult Blood Positive 01/31/18 09:20: White Blood Count 5.1, Red Blood Count 4.04L, Hemoglobin 12.6, Hematocrit 38.4, Mean Corpuscular Volume 95, Mean Corpuscular Hemoglobin 31.3H, Mean Corpuscular Hemoglobin Concent 32.9, Red Cell Distribution Width 12.3, Platelet Count 691H, Mean Platelet Volume 4.9L, Neutrophils (%) (Auto) 60.8, Lymphocytes (%) (Auto) 27.2, Monocytes (%) (Auto) 8.7, Eosinophils (%) (Auto) 1.1, Basophils (%) (Auto ) 2.1H Height (Feet): 5 Height (Inches): 2.00 Weight (Pounds): 143 Objective Thin pale woman NCAT supple CTA RRR Soft NT, less distended no edema Jorge Peralta MD January 31, 2018 23:09
[2018-02-01] VITALS: BP 112/64
[2018-02-01 04:00] VITALS: BP 133/79
[2018-02-01 08:00] VITALS: BP 119/64
--- NOTE | 2018-02-01 08:47 | General Progress Note ---
Assessment/Plan Problem List: (1) PAD (peripheral artery disease) ICD Codes: I73.9 - Peripheral vascular disease, unspecified SNOMED: 685246026, 857174926 (2) Colitis ICD Codes: K52.9 - Noninfective gastroenteritis and colitis, unspecified SNOMED: 23717382 (3) Diarrhea ICD Codes: R19.7 - Diarrhea, unspecified SNOMED: 38586056 (4) Hip pain ICD Codes: M25.559 - Pain in unspecified hip SNOMED: 23583227 Status: stable, progressing Assessment/Plan dificid started by ID monitor labs ivf zofran for nausea pt/ot needed at snf dc planning snf Subjective ROS Limited/Unobtainable: Yes Constitutional: Reports: no symptoms HEENT: Reports: no symptoms Cardiovascular: Reports: no symptoms Respiratory: Reports: no symptoms Gastrointestinal/Abdominal: Reports: no symptoms Genitourinary: Reports: no symptoms Neurologic/Psychiatric: Reports: no symptoms Endocrine: Reports: no symptoms Hematologic/Lymphatic: Reports: no symptoms Allergies: Coded Allergies: No Known Allergies (Unverified , 01/18/18) All Systems: reviewed and negative except above Subjective no events. some blood tinged stool. h/h stable. compliant with meds Objective Last 24 Hour Vital Signs Date Time Temp Pulse Resp B/P (MAP) Pulse Ox O2 Delivery O2 Flow Rate FiO2 02/01/18 04:00 97.4 94 18 133/79 97 97.4 02/01/18 00:00 97.4 76 18 112/64 98 97.4 01/31/18 20:00 97.5 81 18 128/63 100 97.5 01/31/18 16:00 97.3 72 20 107/64 96 Room Air 97.3 01/31/18 12:00 97.3 78 20 130/61 100 Room Air 97.3 Intake and Output 01/31/18 02/01/18 19:00 07:00 Intake Total 160 ml 520 ml Balance 160 ml 520 ml Intake Oral 160 ml 520 ml # Voids 4 5 # Bowel Movements 4 3 Laboratory Tests 01/31/18 09:20: White Blood Count 5.1, Red Blood Count 4.04L, Hemoglobin 12.6, Hematocrit 38.4, Mean Corpuscular Volume 95, Mean Corpuscular Hemoglobin 31.3H, Mean Corpuscular Hemoglobin Concent 32.9, Red Cell Distribution Width 12.3, Platelet Count 691H, Mean Platelet Volume 4.9L, Neutrophils (%) (Auto) 60.8, Lymphocytes (%) (Auto) 27.2, Monocytes (%) (Auto) 8.7, Eosinophils (%) (Auto) 1.1, Basophils (%) (Auto ) 2.1H Height (Feet): 5 Height (Inches): 2.00 Weight (Pounds): 143 Objective General Appearance: WD/WN, alert Neck: supple Cardiovascular: regular rhythm Respiratory/Chest: chest wall non-tender, lungs clear, normal breath sounds Abdomen: normal bowel sounds, non tender, soft, no organomegaly Edema: no edema noted Arm (L), no edema noted Arm (R), no edema noted Leg (L), no edema noted Leg (R), no edema noted Pedal (L), no edema noted Pedal (R), no edema noted Generalized JASS ALLEN February 01, 2018 08:47
[2018-02-01] MEDS: Lactobacillus-GG tablet ORAL SCH ×2 (09:07→12:10)
[2018-02-01] MEDS: Vancomycin oral 125mg/2.5ml ORAL SCH ×2 (09:08→12:10)
[2018-02-01 12:00] VITALS: BP 123/66
--- NOTE | 2018-02-01 16:41 | General Progress Note ---
Assessment/Plan Assessment/Plan Assessment - C Diff colitis - WBC now normal - malnutrition, low albumin - abnormal LFT - u/s negative Recommendations - abx per ID - Questran - probiotics - H2B - po diet Subjective Allergies: Coded Allergies: No Known Allergies (Unverified , 01/18/18) Subjective denies complaints more awake ate well for transfer today Objective Last 24 Hour Vital Signs Date Time Temp Pulse Resp B/P (MAP) Pulse Ox O2 Delivery O2 Flow Rate FiO2 02/01/18 12:00 97.6 92 20 123/66 97 Room Air 97.6 02/01/18 08:00 97.9 107 21 119/64 97 Room Air 97.9 02/01/18 04:00 97.4 94 18 133/79 97 97.4 02/01/18 00:00 97.4 76 18 112/64 98 97.4 01/31/18 20:00 97.5 81 18 128/63 100 97.5 Intake and Output 01/31/18 02/01/18 19:00 07:00 Intake Total 160 ml 520 ml Balance 160 ml 520 ml Intake Oral 160 ml 520 ml # Voids 4 5 # Bowel Movements 4 3 Height (Feet): 5 Height (Inches): 2.00 Weight (Pounds): 143 Objective Thin pale woman NCAT supple CTA RRR Soft NT, less distended no edema Jorge Peralta MD February 01, 2018 16:41
--- NOTE | 2018-02-03 07:36 | Discharge Summary ---
Discharge Summary Discharge Summary _ DATE OF ADMISSION: 01/18/2018 DATE OF DISCHARGE: 02/01/2018 REASON FOR ADMISSION: 87 years old female with history of dementia presented to emergency room for evaluation for 2 days of diarrhea. Patient denied abdominal pain. She denied nausea or vomiting. She denied fever and chills. She denied chest pain or shortness of breath. She denied fall or trauma. She denied dysuria or hematuria. Upon evaluation in emergency room, vital signs were stable, no fever .Laboratory workup revealed significant leukocytosis WBC 26.8, stable hemoglobin and hematocrit. Sodium 126. Urinalysis with pyuria and few bacteria. EKG revealed normal sinus rhythm, no acute ischemic changes, albumin low 2.0. LFT within normal limits. CT of the abdomen and pelvis revealed severe pancolitis. 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 X-ray of the left hip was done since noted limited range of motion of in the left hip. X-ray of the left hip revealed no fracture or dislocation, but showed severe left hip degenerative changes. Patient was admitted with diagnosis of pancolitis, diarrhea,dehydration, hyponatremia, toxic metabolic encephalopathy, left hip pain, peripheral arterial disease. CONSULTANTS: ID specialist Dr. Randolph GI specialist Dr. Peralta psychiatrist Dr. Clemons [facility] COURSE: Patient admitted. Patient started on intravenous fluid hydration and empiric antibiotic for C. difficile colitis. ID and GI consults were requested. Stool for C. difficile came back positive. Stool culture was negative. Urine culture was negative. Antibiotic regimen provided as per ID directions. Per GI discussion, patient was at high risk for toxic megacolon. Initially per GI recommendation patient was started on Questran to bind toxin. H2 blockers and probiotics were added to existing regimen. Antiemetics were on board as needed. Renal parameters and electrolytes were closely monitored. Nephrotoxins were avoided. Sodium up to 132 prior to discharge. Hyponatremia was likely due to dehydration. Psychiatrist closely followed, diagnosed patient with encephalopathy and psychosis. Psychiatrist concluded that the patient lacked capacity to make an informed decision. Patient started on Zyprexa, reality orientation provided. Patient son requested placement to SNF. communications planner started to look for placement Swallow evaluation was done and revealed moderate dysphagia. For quality-of- life speech therapist recommended oral diet. Diet was modified as per speech therapist recommendations with strict aspiration/reflux precautions and one-to- one feeding. Recommended video swallow evaluation, which can be done as outpatient. Dietitian seen patient for initial nutritional assessment and follow-up. Dietary recommendations implemented in plan of care. Noted mild elevation of AST on . Abdominal ultrasound was negative. Monitor LFT at the facility. Patient was working with physical and occupational therapists. Fall precautions maintained. Pain management was addressed, pain was controlled. Placement was found at [facility]. Leukocytosis resolved, patient tolerated diet, diarrhea stopped . Patient was stable for discharge to the assisted facility for continuation of care FINAL DIAGNOSES: C. difficile, colitis Diarrhea Dehydration Hyponatremia ( likely due to dehydration) Toxic metabolic encephalopathy Dementia Malnutrition, Peripheral vascular disease Left hip pain secondary to severe degenerative changes abnormal LFT DISCHARGE MEDICATIONS: See Medication Reconciliation list. DISCHARGE INSTRUCTIONS: Patient was discharged to assisted facility . Follow-up with the health care provider at the facility I have been assigned to dictate discharge summary for this account. I was not involved in the patient's management. Raven Torrez NP February 03, 2018 07:36
== END 2018-02-01 14:00 | DRG 371 ==
LOC: EDBD 13:20 → EMR 14:04 → 4E 15:12 → EDBEDREQ 15:29
DX: A04.72 Enterocolitis due to Clostridium difficile, not specified as recurrent (principal); G92 Toxic encephalopathy; E87.1 Hypo-osmolality and hyponatremia; E46 Unspecified protein-calorie malnutrition; I73.9 Peripheral vascular disease, unspecified; F03.90 Unspecified dementia, unspecified severity, without behavioral disturbance, psychotic disturbance, mood disturbance, and anxiety; F32.89 Other specified depressive episodes; F41.9 Anxiety disorder, unspecified; D72.829 Elevated white blood cell count, unspecified; R94.5 Abnormal results of liver function studies; E86.0 Dehydration; M16.12 Unilateral primary osteoarthritis, left hip; Z68.26 Body mass index [BMI] 26.0-26.9, adult
CPT/HCPCS: 36415; 73502; 74176; 76700; 80053; 81003; 82270; 82962; 84443; 85007; 85025; 87045; 87086; 87324; 93005; 99285; J2405